=== PATIENT | female | born 1995 | race Caucasian/White ===

== ENCOUNTER 2017-09-03 19:28 | Emergency (ER) | payer SELFPAY ==
[~2017-09-03] VITALS: Ht 162.6 cm; Wt 52.6 kg
[~2017-09-03 19:28] MED LIST: CEPH-507 PO; CLIN150C17 PO; HYDR-757 PO; SULF1TAB35 PO
[2017-09-03 19:43] LABS: BILIRUBIN,URINE NEGATIVE (NEGATIVE); CLARITY,URINE SLIGHTLY CLOUDY; COLOR,URINE YELLOW; GLUCOSE, URINE (UA) NEGATIVE (NEGATIVE); KETONES,URINE NEGATIVE (NEGATIVE); LEUKOCYTE ESTERASE ,URINE 3+ (NEGATIVE); NITRITE,URINE NEGATIVE (NEGATIVE); PH,URINE 7 (5-9); PROTEIN,URINE 1+ (NEGATIVE); UROBILINOGEN,URINE NORMAL (NORMAL)
[2017-09-03] MEDS ORDERED: PREN-8 PO (19:43)
[2017-09-03 19:52] LABS: BACTERIA,URINE LARGE /HPF; SQUAMOUS EPITHELIAL CELL,UR >50 /HPF; WBC,URINE TNTC /HPF
[2017-09-03 20:07] LABS: BASOPHILS # (AUTO) 0.1 10^3/uL (0.0-0.1); BASOPHILS % (AUTO) 0 % (0-10); EOSINOPHILS # (AUTO) 0.8 10^3/uL (0.0-0.3); EOSINOPHILS % (AUTO) 6 % (0-10); HEMATOCRIT 38 % (35-52); HEMOGLOBIN 13.1 G/DL (11.5-16.0); LYMPHOCYTES # (AUTO) 2.3 X 10^3 (1.0-4.0); LYMPHOCYTES % (AUTO) 17 % (12-44); MEAN CORPUSCULAR HEMOGLOBIN 30 PG (25-34); MEAN CORPUSCULAR HGB CONC 35 G/DL (32-36); MEAN CORPUSCULAR VOLUME 85 FL (80-99); MEAN PLATELET VOLUME 12.2 FL (7.4-10.4); MONOCYTES # (AUTO) 0.6 X 10^3 (0.0-1.0); MONOCYTES % (AUTO) 5 % (0-12); NEUTROPHILS # (AUTO) 9.7 X 10^3 (1.8-7.8); NEUTROPHILS % (AUTO) 72 % (42-75); PLATELET COUNT 216 10^3/uL (130-400); RED BLOOD COUNT 4.42 10^6/uL (4.35-5.85); RED CELL DISTRIBUTION WIDTH 13.6 % (10.0-14.5); WHITE BLOOD COUNT 13.4 10^3/uL (4.3-11.0)
[2017-09-03] MEDS ORDERED: AZITHROMYCIN 250 MG TAB (ZITHROMAX) PO ONE (21:00)
[2017-09-03] MEDS ORDERED: LIDOCAINE 1% INJ 20 ML (XYLOCAINE) VIAL INJ ONE (21:00)
[2017-09-03] MEDS ORDERED: cefTRIAXone 1 GM (ROCEPHIN) VIAL IM ONE (21:00)
[2017-09-03] MEDS ORDERED: CEPH-507 PO (21:00)
--- NOTE | 2017-09-03 21:00 | ED GU-Female ---
General Chief Complaint: -Female Stated Complaint: ABD PAIN;SPOTTING; 7WKS Nursing Triage Note: pt reports abd cramping starting this morning. spotting starting last night. also c/o yellow vaginal discharge. Nursing Sepsis Screen: No Definite Risk Source: patient Exam Limitations: no limitations History of Present Illness Time seen by provider: 19:37 Initial Comments This 21-year-old young lady presents to the emergency room with cramping and spotting. She is a at about 7 weeks gestational age. Her last menstrual period was July 12. Her spotting occurred last night and has since resolved. Cramping developed today and seems to be more in the upper abdominal locations. She reports having a "bad" vaginal discharge. She also reports having swelling and dysuria after intercourse. She has never had a confirmed a vaginal infection but she is suspicious of possible infection. She reports 5-6 partners within the last 2 years. She has an appointment scheduled with Dr. ZAZUETA for obstetrical care but has not yet been seen. Patient is established with the [facility] and has an ultrasound scheduled for September 09. Allergies and Home Medications Allergies Coded Allergies: No Known Drug Allergies (Unverified , 01/07/11) Home Medications Cephalexin 500 Mg Capsule, 500 MG PO QID, #28 Prescribed by: ERIC DHILLON on 09/03/17 2100 Vit W-Ca,Fe,FA(<1 mg) 1 Each Tablet, 1 EACH PO DAILY, (Reported) Constitutional: no symptoms reported EENTM: no symptoms reported Respiratory: no symptoms reported Cardiovascular: no symptoms reported Gastrointestinal: see HPI Genitourinary: see HPI : Yes Expected Date of Delivery: Apr 18, 2018 LMP: Jul 12, 2017 Musculoskeletal: no symptoms reported Skin: no symptoms reported Psychiatric/Neurological: No Symptoms Reported Endocrine: No Symptoms Reported Hematologic/Lymphatic: No Symptoms Reported Past Zeatcqn-Nsxyas-Qctyuw Hx Patient Social History Alcohol Use: Denies Use Recreational Drug Use: Yes (marijuana in the past) Smoking Status: Current Everyday Smoker Type Used: Cigarettes Recent Foreign Travel: No Contact w/Someone Who Travel: No Recent Infectious Disease Expo: No Recent Hopitalizations: No Physical Abuse: No Sexual Abuse: No Mistreated: No Fear: No Seasonal Allergies Seasonal Allergies: No Surgeries History of Surgeries: Yes (DENTAL) Respiratory History of Respiratory Disorde: No Cardiovascular History of Cardiac Disorders: No Neurological History of Neurological Disord: No Reproductive System : Yes Expected Date of Delivery: Apr 18, 2018 Last Menstrual Period: Jul 12, 2017 Hx : 1 Hx Para: 0 Hx Reproductive Disorders: No Gastrointestinal History of Gastrointestinal Di: No Musculoskeletal History of Musculoskeletal Dis: No Endocrine History of Endocrine Disorders: No Cancer History of Cancer: No Psychosocial History of Psychiatric Problem: No Suicide Risk Score: 0 Family Medical History Significant Family History: No Pertinent Family Hx Physical Exam Vital Signs Vital Sign - Last 12Hours 09/03/17 09/03/17 19:40 21:36 Temp 98.2 Pulse 104 Resp 18 B/P (MAP) 133/81 (98) Pulse Ox 99 O2 Delivery Room Air Capillary Refill : Less Than 3 Seconds General Appearance: WD/WN, no apparent distress HEENT: PERRL/EOMI, normal ENT inspection Neck: normal inspection Cardiovascular: regular rate, rhythm, no edema, no murmur Respiratory: lungs clear, normal breath sounds, no respiratory distress, no accessory muscle use Gastrointestinal: normal bowel sounds, soft, other (minimal tenderness in the upper abdomen) Pelvic: normal external exam, normal adnexa, no cerv. motion tender, discharge (copious thick green vaginal discharge), No vaginal bleeding Extremities: normal inspection, no pedal edema Neurologic/Psychiatric: sagger preparer II-XII nml as tested, no motor/sensory deficits, alert, normal mood/affect, oriented x 3 Skin: normal color, warm/dry Progress/Results/Core Measures Suspected Sepsis Recent Fever Within 48 Hours: No Infection Criteria Present: None New/Unexplained Altered Menta: No Sepsis Screen: No Definite Risk Sepsis Diagnosis: SIRS Temperature:98.2 Pulse: 104 Respiratory Rate: 18 Laboratory Tests 09/03/17 19:58: White Blood Count 13.4H Blood Pressure 133 /81 Mean: 98 Laboratory Tests 09/03/17 19:58: Platelet Count 216 Results/Orders Lab Results Laboratory Tests Test 09/03/17 19:34 09/03/17 19:58 09/03/17 20:09 Range/Units Urine Color YELLOW Urine Clarity SLIGHTLY CLOUDY Urine pH 7 5-9 Urine Specific [place] 1.010 L 1.016-1.022 Urine Protein 1+ H NEGATIVE Urine Glucose (UA) NEGATIVE NEGATIVE Urine Ketones NEGATIVE NEGATIVE Urine Nitrite NEGATIVE NEGATIVE Urine Bilirubin NEGATIVE NEGATIVE Urine Urobilinogen NORMAL NORMAL MG/DL Urine Leukocyte Esterase 3+ H NEGATIVE Urine RBC (Auto) 2+ H NEGATIVE Urine RBC 2-5 H /HPF Urine WBC TNTC H /HPF Urine Squamous Epithelial Cells >50 H /HPF Urine Crystals NONE /LPF Urine Bacteria LARGE H /HPF Urine Casts NONE /LPF Urine Mucus SMALL H /LPF Urine Culture Indicated YES White Blood Count 13.4 H 4.3-11.0 10^3/uL Red Blood Count 4.42 4.35-5.85 10^6/uL Hemoglobin 13.1 11.5-16.0 G/DL Hematocrit 38 35-52 % Mean Corpuscular Volume 85 80-99 FL Mean Corpuscular Hemoglobin 30 25-34 PG Mean Corpuscular Hemoglobin Concent 35 32-36 G/DL Red Cell Distribution Width 13.6 10.0-14.5 % Platelet Count 216 130-400 10^3/uL Mean Platelet Volume 12.2 H 7.4-10.4 FL Neutrophils (%) (Auto) 72 42-75 % Lymphocytes (%) (Auto) 17 12-44 % Monocytes (%) (Auto) 5 0-12 % Eosinophils (%) (Auto) 6 0-10 % Basophils (%) (Auto) 0 0-10 % Neutrophils # (Auto) 9.7 H 1.8-7.8 X 10^3 Lymphocytes # (Auto) 2.3 1.0-4.0 X 10^3 Monocytes # (Auto) 0.6 0.0-1.0 X 10^3 Eosinophils # (Auto) 0.8 H 0.0-0.3 10^3/uL Basophils # (Auto) 0.1 0.0-0.1 10^3/uL Human Chorionic Gonadotropin, Quant 600856 H <5 MIU/ML My Orders Orders - ERIC MARTE MD Cbc With Automated Diff (09/03/17:37) Hcg,Quantitative (09/03/17:37) Ua Culture If Indicated (09/03/17:37) Abo Rh Type (09/03/17:37) Wet Prep (09/03/17 19:52) Neisseria Gonorrhea Dna (09/03/17 19:52) Chlamydia Dna (09/03/17 19:52) Genital Culture (09/03/17 19:52) Urine Culture (09/03/17 19:34) Ceftriaxone Injection (Rocephin Injectio (09/03/17 21:00) Lidocaine 1% Injection (Xylocaine 1% Inj (09/03/17 21:00) Azithromycin Tablet (Zithromax Tablet) (09/03/17 21:00) Lidocaine 1% (Xylocaine 1%) (09/03/17 21:05) Medications Given in ED Current Medications Medications Dose Ordered Sig/Nam Route Start Time Stop Time Status Last Admin Dose Admin Azithromycin 1,000 mg ONCE ONCE PO 09/03/17 21:00 09/03/17 21:01 DC 09/03/17 21:12 1,000 MG Ceftriaxone Sodium 1,000 mg ONCE ONCE IM 09/03/17 21:00 09/03/17 21:01 DC 09/03/17 21:11 1,000 MG Lidocaine HCl 50 ml STK-MED ONCE .ROUTE 09/03/17 21:05 09/03/17 21:08 DC 09/03/17 21:12 2.1 ML Vital Signs/I&O Vital Sign - Last 12Hours 09/03/17 09/03/17 19:40 21:36 Temp 98.2 Pulse 104 99 Resp 18 16 B/P (MAP) 133/81 (98) Pulse Ox 99 O2 Delivery Room Air Capillary Refill : Less Than 3 Seconds Blood Pressure Mean: 98 Progress Note : Progress Note Patient was found to have urinary tract infection by urinalysis. Vaginal exam also suggested vaginal infection. These infections are likely source of bleeding. Since bleeding resolved and patient has no pelvic pain, ultrasound was deferred. She was empirically treated with Rocephin and azithromycin. The preliminary vaginal smear showed no clue cells, Trichomonas, or yeast. She did have notable white blood cells. A prescription for Keflex was provided for further treatment of UTI. Patient has an ultrasound scheduled with the [facility] on September 09. She has an OB appointment later in the month with Dr. ZAZUETA. Departure Impression Impression: Primary Impression: Abdominal cramping affecting Additional Impressions: Urinary tract infection Qualified Codes: N39.0 - Urinary tract infection, site not specified; R31.9 - Hematuria, unspecified Vaginal discharge Disposition: HOME, SELF-CARE Condition: Improved Departure-Patient Inst. Decision time for Depature: 20:58 Referrals: NO,LOCAL PHYSICIAN (PCP) Primary Care Physician Patient Instructions: Urinary Tract Infection, Adult (DC) Add. Discharge Instructions: Drink plenty of clear liquids. Complete your antibiotic as prescribed. Follow- up with Dr. ZAZUETA as soon as possible, preferably late next week. You need to review the final culture results with Dr. ZAZUETA in about a week. You may proceed with your ultrasound at the [facility]. Return to the emergency room if you have worsening problems including worsening bleeding or worsening pain or fever develop new symptoms such as fever. Nothing in the vagina including intercourse until cleared by Dr. ZAZUETA. All discharge instructions reviewed with patient and/or family. Voiced understanding. Scripts Cephalexin (Keflex) 500 Mg Capsule 500 MG PO QID, #28 CAP Prov: ERIC MARTE MD 09/03/17 Copy Copies To 1: QUYEN ZAZUETA JOSHUA T MD Sep 03, 2017 21:00
[2017-09-03] MEDS ORDERED: LIDOCAINE 1% INJ 50 ML (XYLOCAINE) VIAL ONE (21:05)
[2017-09-03 21:36] VITALS: BP 126/75
== END 2017-09-03 21:36 | disposition home or self-care (01) ==
LOC: EDUNIT# 19:28 → ER 19:30
DX: O23.41 Unspecified infection of urinary tract in pregnancy, first trimester (principal); O99.331 Smoking (tobacco) complicating pregnancy, first trimester; F17.210 Nicotine dependence, cigarettes, uncomplicated; Z3A.01 Less than 8 weeks gestation of pregnancy
CPT/HCPCS: 36415; 81000; 84702; 85025; 86900; 86901; 87070; 87088; 87210; 87491; 87591; 96372; 99284

== ENCOUNTER → 2017-12-01 | Outpatient (CLI) | payer MEDICAID ==
[~2017-12-01] MED LIST changes: +PREN-8 PO
--- NOTE | 2017-12-01 12:03 | Diagnostic Imaging Report ---
INDICATION: Field survey. TECHNIQUE: Multiple real-time grayscale images were obtained over the gravid uterus. COMPARISON: None FINDINGS: There is a single live fetus in a transverse presentation, head to the maternal right. The placenta is anterior. The amniotic fluid volume is normal. heart rate was recorded at 155 beats per minute. survey is unremarkable. kidneys, bladder and stomach are unremarkable. spine is unremarkable. There is a four-chamber heart. There is a three-vessel cord with normal cord insertion. brain is unremarkable. Biometrical measurements are as follows: Biparietal 4.65 cm, age 20 weeks 1 days. Head circumference 17.83 cm, age 20 weeks 3 days. Abdominal circumference 14.40 cm, age 19 weeks 6 days. Femur length 3.19 cm, age 20 weeks 0 days. Sonographic estimate age: 20 weeks 1 days. Sonographic estimated date of delivery: 04-19-18. Estimated Weight: 318 gm (+/- 47 gm). LMP percentile: 24%. heart rate: 155 beats per minute. number: 1 of 1. IMPRESSION: Single live IUP approximately 20 weeks 1 day gestational age. The estimated date of confinement sonographically is 04/19/2018. Dictated by: Dictated on workstation # [id number]
== END ==
LOC: RAD 10:15
PROVIDERS: ATTEND Obstetrics & Gynecology
DX: Z36.89 Encounter for other specified antenatal screening (principal); Z3A.20 20 weeks gestation of pregnancy
CPT/HCPCS: 76805

== ENCOUNTER 2018-04-28 20:09 | Inpatient (IN) | payer MEDICAID ==
[~2018-04-28] VITALS: Ht 162.6 cm; Wt 81.2 kg
[2018-04-28] VITALS (7 sets, daily range): BP systolic 112–134; BP diastolic 55–79
[~2018-04-28 20:09] MED LIST changes: +HYDR-4226 PO; -HYDR-757 PO
[2018-04-28] MEDS ORDERED: MISOPROSTOL 100 MCG (CYTOTEC) TAB ONE (20:36)
[2018-04-28] MEDS ORDERED: D5 LR IV SOLUTION 1,000 ML IV ONE ×2 (20:36→20:38)
[2018-04-28] MEDS: D5 LR IV SOLUTION 1,000 ML IV SCH (20:40)
[2018-04-28] MEDS ORDERED: LACTATED RINGERS 1,000 ML IV ONE (20:45)
[2018-04-28] MEDS: LACTATED RINGERS 1,000 ML IV SCH (20:45)
[2018-04-28 20:54] LABS: BASOPHILS % (AUTO) 0 % (0-10); EOSINOPHILS # (AUTO) 0.5 10^3/uL (0.0-0.3); EOSINOPHILS % (AUTO) 4 % (0-10); HEMATOCRIT 35 % (35-52); HEMOGLOBIN 11.9 G/DL (11.5-16.0); LYMPHOCYTES # (AUTO) 1.4 X 10^3 (1.0-4.0); LYMPHOCYTES % (AUTO) 10 % (12-44); MEAN CORPUSCULAR HEMOGLOBIN 30 PG (25-34); MEAN CORPUSCULAR HGB CONC 34 G/DL (32-36); MEAN CORPUSCULAR VOLUME 87 FL (80-99); MEAN PLATELET VOLUME 12.2 FL (7.4-10.4); MONOCYTES # (AUTO) 0.6 X 10^3 (0.0-1.0); MONOCYTES % (AUTO) 4 % (0-12); NEUTROPHILS # (AUTO) 12.1 X 10^3 (1.8-7.8); NEUTROPHILS % (AUTO) 83 % (42-75); PLATELET COUNT 233 10^3/uL (130-400); RED BLOOD COUNT 4.01 10^6/uL (4.35-5.85); RED CELL DISTRIBUTION WIDTH 14.8 % (10.0-14.5); WHITE BLOOD COUNT 14.7 10^3/uL (4.3-11.0)
[2018-04-28] MEDS ORDERED: ceFAZolin INJECTION 1,000 MG in NS (IVPB) 50 ML IV ONE (21:00)
[2018-04-28] MEDS ORDERED: TERBUTALINE INJ 1 MG/ML (BRETHINE) AMP SC PRN (21:00)
[2018-04-28] MEDS ORDERED: MISOPROSTOL 100 MCG (CYTOTEC) TAB PO ONE (21:00)
[2018-04-28 21:14] LABS: AMORPHOUS SEDIMENT,UR FEW AMOR URATES /LPF; BACTERIA,URINE FEW /HPF; BILIRUBIN,URINE NEGATIVE (NEGATIVE); CLARITY,URINE SLIGHTLY CLOUDY; COLOR,URINE YELLOW; GLUCOSE, URINE (UA) NEGATIVE (NEGATIVE); KETONES,URINE NEGATIVE (NEGATIVE); LEUKOCYTE ESTERASE ,URINE NEGATIVE (NEGATIVE); NITRITE,URINE NEGATIVE (NEGATIVE); PH,URINE 6.5 (5-9); PROTEIN,URINE 1+ (NEGATIVE); RBC,URINE >100 /HPF; UROBILINOGEN,URINE NORMAL (NORMAL)
[2018-04-28 21:19] LABS: BAND NEUTROPHILS 18 %; BASOPHILS % (MANUAL) 0 %; EOSINOPHILS % (MANUAL) 1 %; LYMPHOCYTES % (MANUAL) 13 %; MONOCYTES % (MANUAL) 3 %; NEUTROPHILS % (MANUAL) 65 %; RBC MORPH NORMAL
[2018-04-28 21:20] LABS: AMPHETAMINE SCREEN, URINE NEGATIVE (NEGATIVE); BARBITURATE SCREEN URINE NEGATIVE (NEGATIVE); BENZODIAZEPINES SCREEN URINE NEGATIVE (NEGATIVE); CANNABINOID SCREEN, URINE NEGATIVE (NEGATIVE); COCAINE SCREEN URINE NEGATIVE (NEGATIVE); METHADONE STAT NEGATIVE (NEGATIVE); METHAMPHETAMINE SCREEN URINE S NEGATIVE (NEGATIVE); OPIATE SCREEN URINE NEGATIVE (NEGATIVE); OXYCODONE STAT NEGATIVE (NEGATIVE); PROPOXYPHENE STAT NEGATIVE (NEGATIVE); TRICYCLIC ANTIDEPRESSANTS SCRE NEGATIVE (NEGATIVE)
[2018-04-28] MEDS: CATHETER FLUSH 10 ML SYR IV SCH (21:57)
[2018-04-29] VITALS (9 sets, daily range): BP systolic 105–121; BP diastolic 55–74
[2018-04-29] MEDS: ACETAMINOPHEN 500 MG TAB (TYLENOL) PO PRN ×2 (01:27→07:41)
[2018-04-29] MEDS: MISOPROSTOL 100 MCG (CYTOTEC) TAB PO SCH ×2 (02:25→06:01)
[2018-04-29] MEDS: D5 LR IV SOLUTION 1,000 ML IV SCH ×2 (02:25→06:01)
[2018-04-29] MEDS: CATHETER FLUSH 10 ML SYR IV SCH (06:01)
--- NOTE | 2018-04-29 08:26 | History & Physical-OB ---
OB - Chief Complaint & HPI Date/Time Date of Admission: Date of Admission: Apr 28, 2018 at 8:09 pm Time Seen by Provider: 08:00 Chief Complaint/History OB-Reason for Admission/Chief: Induction of Labor Hx : 1 Hx Para: 0 Expected Date of Delivery: Apr 18, 2018 Gestational Age in Weeks: 41 Gestational Age in Days: 4 Other reason for admission: Post dates Admission Nurse Assessment Rev: Yes History of Labs A pos Antibody neg RNI RPR NR HBsAg NR HIV NR GC neg GBS neg Allergies and Home Medications Allergies Coded Allergies: No Known Drug Allergies (Unverified , 01/07/11) Home Medications Vit W-Ca,Fe,FA(<1 mg) 1 Each Tablet, 1 EACH PO DAILY, (Reported) Patient Home Medication List Home Medication List Reviewed: Yes OB - History Hx of Present Care: Yes Ultrasounds: Normal mid trimester US Obstetrical Complications: None Medical Complications: None Patient Past Medical History n/a Social History/Family History Recent Infectious Disease Expo: No Alcohol Use: Denies Use Recreational Drug Use: No (Pt. denies, use documented in record as "before " UDS neg) OB - Admission Exam Physical Exam Vitals: Vital Signs 04/29/18 07:30 Temp 97.1 Pulse 75 Resp 18 B/P (MAP) 121/71 (88) Pulse Ox 99 O2 Delivery Room Air HEENT: NCAT Heart: Rhythm Normal Lungs: Clear Abdomen: Gravid Extremities: Normal Reflexes: Normal Cervical Dilatation: Fingertip Effacement: 75% Station: -2 Membranes: Intact Heart Rate: 130's Accelerations: Accelerations Present Decelerations: Variable Decelerations Short Term Variability: Present Fdc Variability: Average (6-25) Contractions on Admission: 6-10 Minutes Apart Intensity: Mild Pope Scoring Tool (Modified) Dilation (cm): 1-2cm (1) Effacement (%): 51-79% (2) Descent/Station: -2 (1) Cervix Consistency: Soft (2) Cervix Position: Anterior (2) Pope Score: 7 Labs Laboratory Tests Test 04/28/18 20:20 04/28/18 20:25 Range/Units Urine Color YELLOW Urine Clarity SLIGHTLY CLOUDY Urine pH 6.5 5-9 Urine Specific [place] 1.020 1.016-1.022 Urine Protein 1+ H NEGATIVE Urine Glucose (UA) NEGATIVE NEGATIVE Urine Ketones NEGATIVE NEGATIVE Urine Nitrite NEGATIVE NEGATIVE Urine Bilirubin NEGATIVE NEGATIVE Urine Urobilinogen NORMAL NORMAL MG/DL Urine Leukocyte Esterase NEGATIVE NEGATIVE Urine RBC (Auto) 4+ H NEGATIVE Urine RBC >100 H /HPF Urine WBC NONE /HPF Urine Crystals PRESENT H /LPF Urine Amorphous Sediment FEW NARESH URATES H /LPF Urine Bacteria FEW H /HPF Urine Casts NONE /LPF Urine Mucus NEGATIVE /LPF Urine Culture Indicated NO Urine Opiates Screen NEGATIVE NEGATIVE Urine Oxycodone Screen NEGATIVE NEGATIVE Urine Methadone Screen NEGATIVE NEGATIVE Urine Propoxyphene Screen NEGATIVE NEGATIVE Urine Barbiturates Screen NEGATIVE NEGATIVE Ur Tricyclic Antidepressants Screen NEGATIVE NEGATIVE Urine Phencyclidine Screen NEGATIVE NEGATIVE Urine Amphetamines Screen NEGATIVE NEGATIVE Urine Methamphetamines Screen NEGATIVE NEGATIVE Urine Benzodiazepines Screen NEGATIVE NEGATIVE Urine Cocaine Screen NEGATIVE NEGATIVE Urine Cannabinoids Screen NEGATIVE NEGATIVE White Blood Count 14.7 H 4.3-11.0 10^3/uL Red Blood Count 4.01 L 4.35-5.85 10^6/uL Hemoglobin 11.9 11.5-16.0 G/DL Hematocrit 35 35-52 % Mean Corpuscular Volume 87 80-99 FL Mean Corpuscular Hemoglobin 30 25-34 PG Mean Corpuscular Hemoglobin Concent 34 32-36 G/DL Red Cell Distribution Width 14.8 H 10.0-14.5 % Platelet Count 233 130-400 10^3/uL Mean Platelet Volume 12.2 H 7.4-10.4 FL Neutrophils (%) (Auto) 83 H 42-75 % Lymphocytes (%) (Auto) 10 L 12-44 % Monocytes (%) (Auto) 4 0-12 % Eosinophils (%) (Auto) 4 0-10 % Basophils (%) (Auto) 0 0-10 % Neutrophils # (Auto) 12.1 H 1.8-7.8 X 10^3 Lymphocytes # (Auto) 1.4 1.0-4.0 X 10^3 Monocytes # (Auto) 0.6 0.0-1.0 X 10^3 Eosinophils # (Auto) 0.5 H 0.0-0.3 10^3/uL Basophils # (Auto) 0.0 0.0-0.1 10^3/uL Neutrophils % (Manual) 65 % Lymphocytes % (Manual) 13 % Monocytes % (Manual) 3 % Eosinophils % (Manual) 1 % Basophils % (Manual) 0 % Band Neutrophils 18 % Blood Morphology Comment NORMAL OB - Assessment/Plan/Diagnosis Assessment Assessment: induction of labor Admission Dx 22 yo @ 41.3 weeks Induction of labor Post dates GBS neg RNI Admission Status: Inpatient Order (span 2 midnights) Reason for Inpatient Admission: 22 yo @ 41.3 weeks Induction of labor Post dates GBS neg RNI Plan Plan: Induction Induction Method: per Misoprostol Protocol QUYEN ZAZUETA DO Apr 29, 2018 8:26 am
[2018-04-29] MEDS ORDERED: ceFAZolin 2 GM IV Premixed 50 ML ONE (09:05)
[2018-04-29] MEDS ORDERED: raNItidine 50 MG/2 ML INJ (ZANTAC) ONE (09:06)
[2018-04-29] MEDS ORDERED: METOCLOPRAMIDE INJ 10 MG/2 ML (REGLAN) ONE (09:06)
[2018-04-29] MEDS ORDERED: CITRIC ACID/SOB CIT (BICITRA) 30 ML UDC ONE (09:07)
[2018-04-29] MEDS ORDERED: fentaNYL INJECTION 100 MCG/2 ML AMP ONE (09:09)
[2018-04-29] MEDS ORDERED: ceFAZolin 2 GM IV Premixed 50 ML IV NR (09:15)
[2018-04-29] MEDS ORDERED: BUPIVACAINE SPINAL 0.75% (SENSORCAINE) 2 ML AMP ONE (09:19)
[2018-04-29] MEDS ORDERED: OXYTOCIN/NORMAL SALINE 500 ML IV ONE (09:26)
[2018-04-29] MEDS ORDERED: ONDANSETRON 4 MG/2 ML (SDV) Z0FRAN ONE (09:26)
[2018-04-29] MEDS ORDERED: DEXAMETHASONE 10 MG/ML (DECADRON) 1 ML VIAL ONE (09:26)
--- NOTE | 2018-04-29 09:36 | Progress Note-Standard ---
Standard Progress Note Progress Notes/Assess & Plan Date Seen by Provider: Apr 29, 2018 Time Seen by Provider: 08:45 Progress/Assessment & Plan Patient was brought into hospital for induction secondary to post dates at 41.3 weeks last night. MIsoprostol was given PO as induction agent, however, we were only able to give one dose due to heart tracing. There were several episodes of variable decels some of which dropped into the 60s. This morning I discussed with the patient her exam and how it remained unfavorable at fingertip , 60/-2, and how labor and induction at this point would involve pitocin and likely be a long process. There was already evidence of intolerance to labor. We discussed proceeding with pitocin augmentation, vs electing to proceed with . Risk of the procedure was discussed in detail with RN present. All questions were answered, after discussing with her significant other she decided to proceed with as offered. Will proceed with primary at OR availability. QUYEN ZAZUETA DO Apr 29, 2018 9:36 am
[2018-04-29] MEDS ORDERED: OXYTOCIN/NORMAL SALINE 500 ML IV SCH (09:37)
[2018-04-29] MEDS ORDERED: ACHD5005 PO (09:42)
[2018-04-29] MEDS ORDERED: DOCU100C37 PO (09:42)
[2018-04-29] MEDS ORDERED: IBUP-844 PO (09:42)
--- NOTE | 2018-04-29 09:44 | Discharge Inst-Women's Service ---
Discharge Inst-Women's Serv Depart Medication/Instructions New, Converted or Re-Newed RX: RX on Chart Consults/Follow Up Additional Follow Up: Yes Orders/Referrals Dr. Cintron in 7-10 days and in 6 weeks Activity Activity: Activity as Tolerated Driving Instructions: No Driving for 1 Week NO SMOKING: NO SMOKING Nothing Inside Vagina: No Douching, No Cle[place], No Tampons Diet Discharge Diet: No Restrictions Symptoms to Report to : Bleeding Excessive, Pain Increased, Fever Over 101 Degrees F, Vaginal Bleeding Increase, Questions/Concerns For Any Problems or Questions: Contact Your Physician Skin/Wound Care Infection Signs and Symptoms: Increased Redness, Foul Odor of Wound, Increased Drainage, Skin Itchy or Has a Rash, Increased Swelling, Temperature Above 101 F Operative Area Clean and Dry: Keep Incision Clean/Dry Stitches/Conrad/Dermabond: Dermabond, Care of Stitches Bathing Instructions: QUYEN Hernández DO Apr 29, 2018 9:44 am
[2018-04-29] MEDS ORDERED: TETANUS,DIPTH,PERTUSS P/F (BOOSTRIX) 0.5 ML VIAL IM SCH (09:45)
[2018-04-29] MEDS: LACTATED RINGERS 1,000 ML IV SCH (09:45)
[2018-04-29] MEDS ORDERED: MEASLES,MUMPS,RUBELLA 1 EA INJ SC SCH (09:45)
[2018-04-29] MEDS ORDERED: HYDROmorphone 2 MG/ML VIAL (DILAUDID) IV PRN (09:45)
[2018-04-29] MEDS ORDERED: KETOROLAC 30 MG/ML VIAL IVP SCH (09:45)
[2018-04-29] MEDS ORDERED: ONDANSETRON 4 MG/2 ML (SDV) Z0FRAN IVP PRN (09:45)
[2018-04-29] MEDS ORDERED: LIDOCAINE PF 2% 5 ML (XYLOCAINE) VIAL ONE (09:59)
[2018-04-29] MEDS ORDERED: LACTATED RINGERS 1,000 ML IV SCH ×2 (10:25)
[2018-04-29] MEDS ORDERED: KETOROLAC 30 MG/ML VIAL ONE (10:29)
[2018-04-29] MEDS ORDERED: METOCLOPRAMIDE INJ 10 MG/2 ML (REGLAN) IV ONE (10:30)
[2018-04-29] MEDS ORDERED: diphenhydrAMINE 50 MG/ML INJ (BENADRYL) IV PRN (10:30)
[2018-04-29] MEDS ORDERED: NALOXONE 0.4 MG/ML 1 ML (NARCAN) VIAL IV PRN ×2 (10:30)
[2018-04-29] MEDS ORDERED: CITRIC ACID/SOB CIT (BICITRA) 30 ML UDC PO ONE (10:30)
[2018-04-29] MEDS ORDERED: FAMOTIDINE 20MG/2ML IV (PEPCID) IV ONE (10:30)
[2018-04-29] MEDS ORDERED: ONDANSETRON 4 MG/2 ML (SDV) Z0FRAN IV PRN (10:30)
[2018-04-29] MEDS ORDERED: METOCLOPRAMIDE INJ 10 MG/2 ML (REGLAN) IV PRN (10:30)
[2018-04-29] MEDS ORDERED: raNItidine 50 MG/2 ML INJ (ZANTAC) IV ONE (11:00)
[2018-04-29] MEDS ORDERED: AZITHROMYCIN INJECTION 500 MG in NS (IVPB) 250 ML IV NR (13:00)
[2018-04-29] MEDS ORDERED: RT-ALBUTEROL SULF 2.5 MG/3 ML PRE-MIX VIAL INH PRN (13:00)
[2018-04-29] MEDS: guaiFENesin (MUCINEX) 600 MG TAB PO SCH ×2 (13:36→22:05)
[2018-04-29] MEDS ORDERED: CATHETER FLUSH 10 ML SYR IV SCH (14:00)
[2018-04-29] MEDS: HYDROcodone/APAP 5 MG/325 MG (LORTAB) TAB PO PRN ×2 (15:12→22:05)
--- NOTE | 2018-04-29 16:43 | OPERATIVE REPORT ---
DATE OF SERVICE: PREOPERATIVE DIAGNOSES: 1. A 22-year-old G1, P0 at 41 weeks and 4 days gestation. 2. intolerance of labor. POSTOPERATIVE DIAGNOSES: 1. A 22-year-old G1, P0 at 41 weeks and 4 days gestation. 2. intolerance of labor. 3. Nuchal cord x2 and meconium stained fluid. PROCEDURE: Primary low transverse section. SURGEON: Drew Cintron DO RETROFIT INSTALLER: Byron Bull MS-3. ANESTHESIA: Spinal. ESTIMATED BLOOD LOSS: 500 mL. URINE OUTPUT: 350 mL clear at the end of the procedure. FLUIDS: 1300 mL of lactated Ringer solution. FINDINGS: A live female infant, weighing 7 pounds 1 ounce, Apgars of 7 and 9. Grossly normal appearing uterus, bilateral fallopian tubes and ovaries. Meconium stained fluid and nuchal cord x2. SPECIMEN SENT: Placenta. INDICATIONS FOR PROCEDURE: This 22-year-old female was brought in last night for induction of labor secondary to postdates at 41 weeks. Risks of induction were discussed with the patient in detail. We proceeded with using misoprostol as a cervical ripening agent. However, after only one dose orally, the patient had episodes of intolerance. A second dose was not given. IV fluid hydration was administered and oxygen was started. She was allowed to continue to contract throughout the night. There were intermittent variables, some of them were down into the 60s throughout the evening, however, she remained stable until morning. This morning, I evaluated the patient and checked her cervix, which I had found to make little to no change. She was still fingertip dilated and had a long labor ahead of her. Due to the consideration of the intolerance of the mild contraction pattern, I discussed with her proceeding with as I had suspected there was probably meconium stained fluid and possibly even a nuchal cord due to the way that the fetus was not tolerating any type of contraction pattern or labor. Risk of was discussed with the patient in detail including risk of bleeding, infection, damage to surrounding structures including but not limited to bowel, bladder, ureter, kidneys; pre and postoperative expectations; postoperative recovery timeframe as well as possible need for reoperation; risk from anesthesia and even . After everything was discussed with the patient, consent was obtained. The patient was taken to the operating room. OPERATIVE REPORT IN DETAIL: Once in the operating room, spinal analgesia was found to be adequate. She was placed in a supine position with a leftward tilt, prepped and draped in normal sterile fashion. A Pfannenstiel skin incision was made with a knife and carried down to the underlying fascia using Bovie cautery. The fascial incision extended laterally using Bovie cautery. Superior edge of the fascial incision was then grasped with Sally clamps, tented up and dissected off the underlying rectus muscles. The inferior aspect of the fascial incision was then grasped with Sally clamps, tented up and dissected off the underlying rectus muscles. The rectus muscle was then dissected down the midline using Anglin scissors which exposed the peritoneum, which I entered bluntly and extended using blunt traction. I then placed an Gio ring retractor into the peritoneal incision, which offered excellent lateral sidewall retraction. I then identified the lower uterine segment, which was found to be thinned out. I made an incision through the vesicouterine peritoneum and bluntly dissected the vesicouterine peritoneum off the lower uterine segment. I then proceeded with my myotomy until membranes were visualized at which point I extended the uterine incision laterally and superiorly using bandage scissors. At rupture of membranes using the Allis clamp, there was meconium stained fluid noted. The infant was found in vertex presentation. With gentle fundal pressure, the infant's head was elevated up to the incision and delivered through the incision where the nares and oropharynx were bulb suctioned. There was a double nuchal cord reduced. Anterior and posterior shoulders were delivered. was then brought into the operative field where cord was doubly clamped and cut. was handed off to the waiting nurses in attendance. Cord blood was collected. Three-vessel cord with intact placenta was delivered spontaneously thereafter. IV Pitocin was initiated to facilitate uterine contraction. Uterine fundus became firmer by manual massage. The uterus was then exteriorized and cleared of all endometrial clots and debris. I then proceeded with closing the uterine incision using 0 Vicryl suture in running locked fashion. Second layer of imbricating 0 Monocryl was placed. Excellent hemostasis was noted after doing this. I then placed the uterus back within the pelvis and copiously irrigated the pelvis using normal saline. Once again, there was no active bleeding noted from any of my dissection planes. I then placed Interceed antiadhesive over my low transverse incision. I removed all other instruments from the patient's abdomen and proceeded with closing the peritoneum using 3-0 Vicryl suture in a running fashion. The rectus muscle was then reapproximated using 3-0 Vicryl suture in interrupted fashion. The fascia was reapproximated using 0 Vicryl suture in running fashion. Subcutaneous tissue was reapproximated using 3-0 plain in an interrupted subcutaneous stitch and skin reapproximated using 4-0 Monocryl in a running subcuticular. Dermabond was applied to incision and sterile dressing with adhesive white tape. The patient tolerated the procedure well and was taken to recovery area in stable condition. Lap and sponge counts were correct at the end of the procedure. Instrument counts were correct as well. Two grams of Ancef were given preoperatively for infection prophylaxis. Job ID: [id number] DocumentID: [id number] Dictated Date: 04/29/2018 11:03:52 Green Building Design Specialist Date: 04/29/2018 16:42:47 Dictated By: DO WILFRIDO HARRY
[2018-04-29] MEDS ORDERED: IBUPROFEN 600 MG (MOTRIN) TAB PO ONE (21:11)
[2018-04-29] MEDS: IBUPROFEN 600 MG (MOTRIN) TAB PO SCH (21:15)
[2018-04-29] MEDS: DOCUSATE SODIUM 100 MG (COLACE) CAP PO SCH (22:05)
[2018-04-30] VITALS (7 sets, daily range): BP systolic 98–152; BP diastolic 52–78
[2018-04-30 04:50] LABS: BASOPHILS % (AUTO) 0 % (0-10); EOSINOPHILS # (AUTO) 0.1 10^3/uL (0.0-0.3); EOSINOPHILS % (AUTO) 1 % (0-10); HEMATOCRIT 29 % (35-52); HEMOGLOBIN 9.7 G/DL (11.5-16.0); LYMPHOCYTES % (AUTO) 10 % (12-44); MEAN CORPUSCULAR HGB CONC 33 G/DL (32-36); MEAN CORPUSCULAR VOLUME 88 FL (80-99); MEAN PLATELET VOLUME 11.6 FL (7.4-10.4); MONOCYTES # (AUTO) 1.4 X 10^3 (0.0-1.0); MONOCYTES % (AUTO) 7 % (0-12); NEUTROPHILS % (AUTO) 82 % (42-75); PLATELET COUNT 196 10^3/uL (130-400); RED BLOOD COUNT 3.29 10^6/uL (4.35-5.85); RED CELL DISTRIBUTION WIDTH 14.8 % (10.0-14.5); WHITE BLOOD COUNT 19.5 10^3/uL (4.3-11.0)
[2018-04-30 04:52] LABS: MEAN CORPUSCULAR HEMOGLOBIN 29 PG (25-34)
[2018-04-30] MEDS ORDERED: IBUPROFEN 600 MG (MOTRIN) TAB PO ONE (05:38)
[2018-04-30] MEDS: HYDROcodone/APAP 5 MG/325 MG (LORTAB) TAB PO PRN ×3 (05:47→23:28)
[2018-04-30] MEDS: IBUPROFEN 600 MG (MOTRIN) TAB PO SCH ×4 (05:47→23:27)
--- NOTE | 2018-04-30 07:54 | Anesthesia-Regional Post-Op ---
Regional Patient Condition Mental Status: Alert, Oriented x3 Circulation: Same as Pre-Op Headache: Absent Sensation: Full Recovery Motor Block: Absent Post Op Complications Complications None Follow Up Care/Instructions Patient Instructions None needed. Anesthesia/Patient Condition Patient is doing well, no complaints, stable vital signs, no apparent adverse anesthesia problems. No complications reported per nursing. D/C home per [facility] [place] Criteria: Yes OBB TINEO CRNA Apr 30, 2018 07:54
[2018-04-30] MEDS: DOCUSATE SODIUM 100 MG (COLACE) CAP PO SCH ×2 (08:30→23:27)
--- NOTE | 2018-04-30 09:38 | Postpartum Progress Note ---
Note Note Day # 1 Subjective: Patient is without complaints. Ambulating, voiding. Tolerating a regular diet without nausea or vomiting. Normal lochia. Pain is well controlled with oral pain medications. Objective: Vital Sign - Last 24 Hours 04/29/18 04/29/18 04/29/18 04/29/18 12:00 12:45 13:47 14:20 Temp 97.8 97.5 Pulse 60 80 Resp 14 16 B/P (MAP) 110/70 (83) 120/74 (89) Pulse Ox 97 95 96 O2 Delivery Room Air Room Air Room Air Room Air 04/29/18 04/29/18 04/29/18 04/30/18 16:10 16:44 19:15 01:15 Temp 98.0 98.6 98.1 Pulse 81 86 94 Resp 18 18 18 B/P (MAP) 120/62 (81) 105/66 (79) 109/63 (78) Pulse Ox 96 95 97 96 O2 Delivery Room Air Room Air 04/30/18 04/30/18 05:50 08:30 Temp 98.2 97.0 Pulse 92 89 Resp 18 18 B/P (MAP) 126/71 (89) 114/65 (81) Pulse Ox 97 97 O2 Delivery Room Air Intake and Output 04/29/18 04/29/18 04/30/18 15:00 23:00 07:00 Intake Total 800 ml 1240 ml 1100 ml Output Total 350 ml 900 ml 1800 ml Balance 450 ml 340 ml -700 ml Physical Exam: General - Alert and oriented, no apparent distress Abdomen - Soft, appropriately tender to palpation, non-distended, fundus firm at umbilicus Extremities - no edema, negative Ken's bilaterally Incision - c/d/i Assessment: POD 1 PLTCS Acute blood loss anemia Plan: Routine care. Encourage breast feeding. Encourage ambulation. Ferrous sulfate supplementation. Plan for discharge tomorrow Vitals - Labs Vital Signs - I&O Vital Signs Date Time Temp Pulse Resp B/P (MAP) Pulse Ox O2 Delivery O2 Flow Rate FiO2 04/30/18 08:30 97.0 89 18 114/65 (81) 97 Room Air 04/30/18 05:50 98.2 92 18 126/71 (89) 97 04/30/18 01:15 98.1 94 18 109/63 (78) 96 04/29/18 19:15 98.6 86 18 105/66 (79) 97 04/29/18 16:44 95 Room Air 04/29/18 16:10 98.0 81 18 120/62 (81) 96 Room Air 04/29/18 14:20 97.5 80 16 120/74 (89) 96 Room Air 04/29/18 13:47 95 Room Air 04/29/18 12:45 97.8 60 14 110/70 (83) 97 Room Air 04/29/18 12:00 Room Air I & O 04/30/18 07:00 Intake Total 3140 ml Output Total 3050 ml Balance 90 ml Labs Laboratory Tests 04/30/18 04:40: White Blood Count 19.5H, Red Blood Count 3.29L, Hemoglobin 9.7L, Hematocrit 29L , Mean Corpuscular Volume 88, Mean Corpuscular Hemoglobin 29, Mean Corpuscular Hemoglobin Concent 33, Red Cell Distribution Width 14.8H, Platelet Count 196, Mean Platelet Volume 11.6H, Neutrophils (%) (Auto) 82H, Lymphocytes (%) (Auto) 10L, Monocytes (%) (Auto) 7, Eosinophils (%) (Auto) 1, Basophils (%) (Auto) 0, Neutrophils # (Auto) 16.0H, Lymphocytes # (Auto) 2.0, Monocytes # (Auto) 1.4H, Eosinophils # (Auto) 0.1, Basophils # (Auto) 0.0 QUYEN ZAZUETA DO Apr 30, 2018 9:38 am
[2018-04-30] MEDS: guaiFENesin (MUCINEX) 600 MG TAB PO SCH ×2 (10:18→18:02)
[2018-05-01 05:50] VITALS: BP 100/57
[2018-05-01] MEDS: IBUPROFEN 600 MG (MOTRIN) TAB PO SCH (05:54)
[2018-05-01 08:50] VITALS: BP 116/71
[2018-05-01] MEDS: DOCUSATE SODIUM 100 MG (COLACE) CAP PO SCH (08:53)
[2018-05-01] MEDS: guaiFENesin (MUCINEX) 600 MG TAB PO SCH (08:53)
--- NOTE | 2018-05-01 09:03 | Postpartum Progress Note ---
Note Note Day # 2 Subjective: Patient is without complaints. Ambulating, voiding. Tolerating a regular diet without nausea or vomiting. Normal lochia. Pain is well controlled with oral pain medications. Objective: Vital Sign - Last 24 Hours 04/30/18 04/30/18 04/30/18 04/30/18 13:35 16:30 19:20 19:43 Temp 98.7 97.6 97.7 Pulse 88 88 97 Resp 16 20 18 B/P (MAP) 152/78 (102) 109/72 (84) 107/66 (80) Pulse Ox 98 95 98 96 O2 Delivery Room Air Room Air Room Air 04/30/18 05/01/18 05/01/18 23:30 05:50 08:50 Temp 98.1 98.0 99.5 Pulse 84 75 88 Resp 18 18 18 B/P (MAP) 98/52 (67) 100/57 (71) 116/71 (86) Pulse Ox 98 98 98 Physical Exam: General - Alert and oriented, no apparent distress Abdomen - Soft, appropriately tender to palpation, non-distended, fundus firm at umbilicus Extremities - no edema, negative Ken's bilaterally Incision - c/d/i Assessment: POD 2 PLTCS Acute blood loss anemia Plan: Routine care. Encourage breast feeding. Encourage ambulation. Ferrous sulfate supplementation. Plan for discharge today Vitals - Labs Vital Signs - I&O Vital Signs Date Time Temp Pulse Resp B/P (MAP) Pulse Ox O2 Delivery O2 Flow Rate FiO2 05/01/18 08:50 99.5 88 18 116/71 (86) 98 05/01/18 05:50 98.0 75 18 100/57 (71) 98 04/30/18 23:30 98.1 84 18 98/52 (67) 98 04/30/18 19:43 96 Room Air 04/30/18 19:20 97.7 97 18 107/66 (80) 98 04/30/18 16:30 97.6 88 20 109/72 (84) 95 Room Air 04/30/18 13:35 98.7 88 16 152/78 (102) 98 Room Air QUYEN ZAZUETA DO May 01, 2018 9:02 am
--- NOTE | 2018-05-07 00:28 | DISCHARGE SUMMARY ---
DATE OF SERVICE: ADMISSION DIAGNOSES: 1. A 22-year-old G1, P0 at 41 weeks and 3 days gestation. 2. Induction of labor. 3. Postdates. 4. Rubella nonimmune. 5. Group B strep negative. DISCHARGE DIAGNOSES: 1. A 22-year-old G1, P0 at 41 weeks and 3 days gestation. 2. Induction of labor. 3. Postdates. 4. Rubella nonimmune. 5. Group B strep negative. 6. Postoperative day #2 primary low transverse section. 7. Acute blood loss anemia. ATTENDING PHYSICIAN: Quyen Zazueta D.O. SERVICES: [facility]. HOSPITAL COURSE: Is as follows. Please see admission H and P from 04/29/2018 for complete details pertaining to the patient's admission presentation and plan of care. Please see operative report from 04/29/2018 for complete details pertaining to the patient's operative procedure in detail as well as the indications for procedure. POSTOPERATIVE COURSE: The patient was fairly routine. On postop day 1, she was doing very well, ambulating and voiding freely. Her vital signs remained stable. Her hemoglobin had decreased to 9.7 and she was started on ferrous sulfate supplementation. Her incision remained clean and dry and intact and she was encouraged to ambulate and use incentive spirometry. On day #2, the patient continued to do well and was ambulating and voiding freely, lochia was minimal. Vital signs remained stable. Incision remained clean, dry and intact. Due to the patient's clinical stability, decision was made to discharge the patient on postop day #2. She was sent home on the following medications including Motrin 600 mg 1 p.o. q.6 hours p.r.n. as needed for pain and cramping #60, Barnes 5/325 one to two p.o. q.4 to 6 hours p.r.n. as needed for pain, #50 and Colace 100 mg 1 p.o. b.i.d. p.r.n. as needed for constipation, #40. She was told to continue her vitamin, the ferrous sulfate supplementation was sent home with her as well. Postoperative and precautions were reviewed with the patient in detail and after all her questions were answered to her satisfaction discharge was facilitated at that point without further difficulty. Job ID: [id number] DocumentID: [id number] Dictated Date: 05/06/2018 16:52:12 Psychological Stress Evaluator Date: 05/07/2018 00:27:23 Dictated By: QUYEN ZAZUETA DO
== END 2018-05-01 21:00 | disposition home or self-care (01) | DRG 765 ==
LOC: LDRP 20:09
PROVIDERS: ADMIT Obstetrics & Gynecology; ATTEND Obstetrics & Gynecology
PROC: 3E0DXGC Introduction of Other Therapeutic Substance into Mouth and Pharynx, External Approach (ICD-10-PCS; 2018-04-28)
PROC: 10D00Z1 Extraction of Products of Conception, Low, Open Approach (ICD-10-PCS; principal; 2018-04-29 11:15)
DX: O48.0 Post-term pregnancy (principal); O90.81 Anemia of the puerperium; D62 Acute posthemorrhagic anemia; O76 Abnormality in fetal heart rate and rhythm complicating labor and delivery; O69.81X0 Labor and delivery complicated by cord around neck, without compression, not applicable or unspecified; O77.0 Labor and delivery complicated by meconium in amniotic fluid; Z3A.41 41 weeks gestation of pregnancy; Z37.0 Single live birth; Z23 Encounter for immunization
CPT/HCPCS: 36415; 80306; 81000; 85007; 85025; 85027; 86850; 86900; 86901; 88307; 90707; 94640; 94664; 94760

== ENCOUNTER 2018-07-14 00:57 | Emergency (ER) | payer MEDICAID ==
[~2018-07-14] VITALS: Ht 162.6 cm; Wt 68.0 kg
[~2018-07-14 00:57] MED LIST changes: +ACHD5005 PO; +DOCU100C37 PO; +IBUP-844 PO
--- OUTSIDE RECORDS SUMMARY | 2018-07-14 01:03 | XMS REPORT ---
Author Author STANLEY ARTEAGA Organization [employer] Address Unknown Phone Unavailable Care Team Providers Care Admin Dir Name Role Phone STANLEY ARTEAGA CP Unavailable Allergies, Adverse Reactions, Alerts Substance Reaction Event Type N.K.D.A. Info Not Available Non Drug Allergy Problems Problem Type Condition Code Onset Dates Condition Status Assessment Dental examination Z01.20 Active Medications No Known Medications Procedures Procedure Coding System Code Date BITEWING - SINGLE FILM CPT-4 D0270 Jun 22, 2015 EXTRAC ERUPTED TOOTH/EXPOSED ROOT CPT-4 D7140 Jun 22, 2015 INTRAORL-PERIAPICAL 1 FILM 04164 CPT-4 D0220 Jun 22, 2015 Vital Signs Date/Time: Jun 22, 2015 Blood Pressure Diastolic 88 mmHg Blood Pressure Systolic 123 mmHg Results No Known Results Summary Purpose [employer] Submission
--- OUTSIDE RECORDS SUMMARY | 2018-07-14 01:04 | XMS REPORT | Continuity of Care Document ---
Author Author [facility] Organization [facility] Address Unknown Phone Unavailable Allergies Active Description Code Type Severity Reaction Onset Reported/Identified Relationship to Patient Clinical Status Yes No Known Drug Allergies [id number] Drug Allergy Unknown N/A 01/07/2011 Medications There is no data. Problems Date Dx Coded Attending Type Code Diagnosis Diagnosed By 01/07/2011 Ot 599.0 01/07/2011 Ot 789.00 02/21/2011 Ot 850.0 02/21/2011 Ot 959.01 02/21/2011 Ot E000.8 02/21/2011 Ot E849.4 02/21/2011 Ot E960.0 04/09/2015 KARINA SEYMOUR SET UP AND LAY OUT INSPECTOR Ot 522.5 PERIAPICAL ABSCESS 04/30/2015 KARINA SEYMOUR SET UP AND L[employer] OUT INSPECTOR Ot 305.70 AMPHETAMINE ABUSE-UNSPEC 04/30/2015 KARINA SEYMOUR SET UP AND L[employer] OUT INSPECTOR Ot 523.31 AGGRESSIVE PERIODONTITIS, LOCALIZED 04/30/2015 KARINA SEYMOUR SET UP AND LAY OUT INSPECTOR Ot 525.9 DENTAL DISORDER NOS 09/03/2017 ERIC MARTE MD Ot F17.210 NICOTINE DEPENDENCE, CIGARETTES, UNCOMPL 09/03/2017 ERIC MARTE MD Ot O23.41 UNSP INFCT OF URINARY TRACT IN 09/03/2017 ERIC MARTE MD Ot O26.851 SPOTTING COMPLICATING , FIRST T 09/03/2017 ERIC MARTE MD Ot O99.331 SMOKING (TOBACCO) COMPLICATING 09/03/2017 ERIC MARTE MD Ot Z3A.01 LESS THAN 8 WEEKS GESTATION OF 09/05/2017 ERIC MARTE MD Ot F17.210 NICOTINE DEPENDENCE, CIGARETTES, UNCOMPL 09/05/2017 ERIC MARTE MD Ot O23.41 UNSP INFCT OF URINARY TRACT IN 09/05/2017 RAY MARTE MDUA T Ot O26.851 SPOTTING COMPLICATING , FIRST T 09/05/2017 ROSANNA BECKER, ERIC Fox Ot O99.331 SMOKING (TOBACCO) COMPLICATING 09/05/2017 ROSANNA BECKER, ERIC Fox Ot Z3A.01 LESS THAN 8 WEEKS GESTATION OF 12/02/2017 CARLITA FARRAR QUYEN Gonzalez Ot Z36.89 ENCOUNTER FOR OTHER SPECIFIED 12/02/2017 CARLITA FARRARQUYEN Ot Z3A.20 20 WEEKS GESTATION OF 12/16/2017 CARLITA FARRARQUYEN Lisa Ot Z36.89 ENCOUNTER FOR OTHER SPECIFIED 12/16/2017 CARLITA FARRARQUYEN Lisa Ot Z3A.20 20 WEEKS GESTATION OF 05/01/2018 CARLITA FARRARQUYEN Ot D62 ACUTE POSTHEMORRHAGIC ANEMIA 05/01/2018 CARLITA FARRARQUYEN Ot O48.0 POST-TERM 05/01/2018 CARLITA FARRARQUYEN Lisa Ot O69.81X0 LABOR AND DEL COMP BY CORD AROUND NECK, 05/01/2018 CARLITA FARRARQUYEN Ot O76 ABNLT IN HEART RATE AND RHYTHM COM 05/01/2018 CARLITA FARRARQUYEN Ot O77.0 LABOR AND DELIVERY COMPLICATED BY MECONI 05/01/2018 CARLITA FARRARQUYEN Ot O90.81 ANEMIA OF THE PUERPERIUM 05/01/2018 CARLITA FARRARQUYEN Ot Z23 ENCOUNTER FOR IMMUNIZATION 05/01/2018 CARLITA FARRAR QUYEN Gonzalez Ot Z37.0 SINGLE LIVE 05/01/2018 CARLITA FARRAR QUYEN Gonzalez Ot Z3A.41 41 WEEKS GESTATION OF Procedures Code Description Performed By Performed On [id number] INTRODUCE [facility] THERAP SUBST IN MOUTH/PHAR 04/28/2018 [id number] EXTRACTION OF POC, LOW CERVICAL, OPEN AP 04/29/2018 Results Test Result Range Complete urinalysis with reflex to culture - 09/03/17 19:34 Urine color determination YELLOW NRG Urine clarity determination SLIGHTLY CLOUDY NRG Urine pH measurement by test strip 7 5-9 Specific gravity of urine by test strip 1.010 1.016- 1.022 Urine protein assay by test strip, semi-quantitative 1+ NEGATIVE Urine glucose detection by automated test strip NEGATIVE NEGATIVE Erythrocytes detection in urine sediment by light microscopy 2+ NEGATIVE Urine ketones detection by automated test strip NEGATIVE NEGATIVE Urine nitrite detection by test strip NEGATIVE NEGATIVE Urine total bilirubin detection by test strip NEGATIVE NEGATIVE Urine urobilinogen measurement by automated test strip (mass/volume) NORMAL NORMAL Urine leukocyte esterase detection by dipstick 3+ NEGATIVE Automated urine sediment erythrocyte count by microscopy (number/high power field) [HPF] NRG Automated urine sediment leukocyte count by microscopy (number/high power field ) TNTC NRG Bacteria detection in urine sediment by light microscopy LARGE NRG Squamous epithelial cells detection in urine sediment by light microscopy >50 NRG Crystals detection in urine sediment by light microscopy NONE NRG Casts detection in urine sediment by light microscopy NONE NRG Mucus detection in urine sediment by light microscopy SMALL NRG Complete urinalysis with reflex to culture YES NRG Bacterial urine culture - 09/03/17 19:34 Bacterial urine culture [id number] NRG COLONY COUNT <10,000 NRG FTX;REPORTABLE (COAGULASE NEGATIVE STAPHYLOCOCCUS) NRG URINE CULTURE RESULTS PLUS NRG FREE TEXT ENTRY 2 SEE COMMENT NRG Complete blood count (CBC) with automated white blood cell (WBC) differential - 09/03/17 19:58 Blood leukocytes automated count (number/volume) 13.4 10*3/uL 4.3-11.0 Blood erythrocytes automated count (number/volume) 4.42 10*6/uL 4.35-5.85 Venous blood hemoglobin measurement (mass/volume) 13.1 g/dL 11.5-16.0 Blood hematocrit (volume fraction) 38 % 35-52 Automated erythrocyte mean corpuscular volume 85 [foz_us] 80-99 Automated erythrocyte mean corpuscular hemoglobin (mass per erythrocyte) 30 pg 25-34 Automated erythrocyte mean corpuscular hemoglobin concentration measurement ( mass/volume) 35 g/dL 32-36 Automated erythrocyte distribution width ratio 13.6 % 10.0-14.5 Automated blood platelet count (count/volume) 216 10*3/uL 130-400 Automated blood platelet mean volume measurement 12.2 [foz_us] 7.4-10.4 Automated blood neutrophils/100 leukocytes 72 % 42-75 Automated blood lymphocytes/100 leukocytes 17 % 12-44 Blood monocytes/100 leukocytes 5 % 0-12 Automated blood eosinophils/100 leukocytes 6 % 0-10 Automated blood basophils/100 leukocytes 0 % 0-10 Blood neutrophils automated count (number/volume) 9.7 10*3 1.8-7.8 Blood lymphocytes automated count (number/volume) 2.3 10*3 1.0-4.0 Blood monocytes automated count (number/volume) 0.6 10*3 0.0-1.0 Automated eosinophil count 0.8 10*3/uL 0.0-0.3 Automated blood basophil count (count/volume) 0.1 10*3/uL 0.0-0.1 ABO+Rh group - 09/03/17 19:58 ABO+Rh group AP NRG Transfusion band number [id number] NRG Serum or plasma choriogonadotropin measurement (units/volume) - 09/03/17 19:58 Serum or plasma choriogonadotropin measurement (units/volume) [id number] m[iU]/mL <5 Bacteria identification in genital specimen by aerobe culture - 09/03/17 20:09 FREE TEXT EXTERNAL PLUS MODERATE NORMAL PAIGE NRG QUANTITY OF GROWTH Abundant Growth NRG Bacteria identification in genital specimen by aerobe culture [id number] NRG FREE TEXT EXTERNAL 2 NO BETA STREPTOCOCCUS OBSERVED NRG FREE TEXT EXTERNAL 3 ON CULTURE. NRG Microscopic examination by wet preparation - 09/03/17 20:09 WET PREP RESULTS 09-04-17 NRG Neisseria gonorrhoeae DNA detection by probe and signal amplification method - 09/03/17 20:09 Gonorrhea amp DNA-urine Not Detected Not Detected Chlamydia trachomatis DNA detection by probe and signal amplification method - 09/03/17 20:09 Chlamydia trachomatis DNA detection by probe and target amplification method Not Detected Not Detected Complete urinalysis with reflex to culture - 04/28/18 20:20 Urine color determination YELLOW NRG Urine clarity determination SLIGHTLY CLOUDY NRG Urine pH measurement by test strip 6.5 5-9 Specific gravity of urine by test strip 1.020 1.016- 1.022 Urine protein assay by test strip, semi-quantitative 1+ NEGATIVE Urine glucose detection by automated test strip NEGATIVE NEGATIVE Erythrocytes detection in urine sediment by light microscopy 4+ NEGATIVE Urine ketones detection by automated test strip NEGATIVE NEGATIVE Urine nitrite detection by test strip NEGATIVE NEGATIVE Urine total bilirubin detection by test strip NEGATIVE NEGATIVE Urine urobilinogen measurement by automated test strip (mass/volume) NORMAL NORMAL Urine leukocyte esterase detection by dipstick NEGATIVE NEGATIVE Automated urine sediment erythrocyte count by microscopy (number/high power field) > [HPF] NRG Automated urine sediment leukocyte count by microscopy (number/high power field ) NONE NRG Bacteria detection in urine sediment by light microscopy FEW NRG Crystals detection in urine sediment by light microscopy PRESENT NRG Casts detection in urine sediment by light microscopy NONE NRG Mucus detection in urine sediment by light microscopy NEGATIVE NRG Complete urinalysis with reflex to culture NO NRG Amorphous sediment detection in urine sediment by light microscopy FEW NARESH URATES NRG Urine drug screening test - 04/28/18 20:20 Urine phencyclidine detection by screening method NEGATIVE NEGATIVE Urine benzodiazepines detection by screening method NEGATIVE NEGATIVE Urine cocaine detection NEGATIVE NEGATIVE Urine amphetamines detection by screening method NEGATIVE NEGATIVE Urine methamphetamine detection by screening method NEGATIVE NEGATIVE Urine cannabinoids detection by screening method NEGATIVE NEGATIVE Urine opiates detection by screening method NEGATIVE NEGATIVE Urine barbiturates detection NEGATIVE NEGATIVE Screening urine tricyclic antidepressants detection NEGATIVE NEGATIVE Urine methadone detection by screening method NEGATIVE NEGATIVE Urine oxycodone detection NEGATIVE NEGATIVE Urine propoxyphene detection NEGATIVE NEGATIVE Complete blood count (CBC) with automated white blood cell (WBC) differential - 04/28/18 20:25 Blood leukocytes automated count (number/volume) 14.7 10*3/uL 4.3-11.0 Blood erythrocytes automated count (number/volume) 4.01 10*6/uL 4.35-5.85 Venous blood hemoglobin measurement (mass/volume) 11.9 g/dL 11.5-16.0 Blood hematocrit (volume fraction) 35 % 35-52 Automated erythrocyte mean corpuscular volume 87 [foz_us] 80-99 Automated erythrocyte mean corpuscular hemoglobin (mass per erythrocyte) 30 pg 25-34 Automated erythrocyte mean corpuscular hemoglobin concentration measurement ( mass/volume) 34 g/dL 32-36 Automated erythrocyte distribution width ratio 14.8 % 10.0-14.5 Automated blood platelet count (count/volume) 233 10*3/uL 130-400 Automated blood platelet mean volume measurement 12.2 [foz_us] 7.4-10.4 Automated blood neutrophils/100 leukocytes 83 % 42-75 Automated blood lymphocytes/100 leukocytes 10 % 12-44 Blood monocytes/100 leukocytes 4 % 0-12 Automated blood eosinophils/100 leukocytes 4 % 0-10 Automated blood basophils/100 leukocytes 0 % 0-10 Blood neutrophils automated count (number/volume) 12.1 10*3 1.8-7.8 Blood lymphocytes automated count (number/volume) 1.4 10*3 1.0-4.0 Blood monocytes automated count (number/volume) 0.6 10*3 0.0-1.0 Automated eosinophil count 0.5 10*3/uL 0.0-0.3 Automated blood basophil count (count/volume) 0.0 10*3/uL 0.0-0.1 Blood manual differential performed detection - 04/28/18 20:25 Blood monocytes/100 leukocytes 3 % NRG Manual blood segmented neutrophils/100 leukocytes 65 % NRG Blood band neutrophils/100 leukocytes 18 % NRG Manual blood lymphocytes/100 leukocytes 13 % NRG Manual eosinophils/100 leukocytes in nose 1 % NRG Manual blood basophils/100 leukocytes 0 % NRG Blood erythrocyte morphology finding identification NORMAL NRG Blood type T Indirect antibody screen panel - 04/28/18 20:25 ABO+Rh group AP NRG Transfusion band number [id number] NRG Blood group antibody screen NEGATIVE NRG Complete blood count (CBC) with automated white blood cell (WBC) differential - 04/30/18 04:40 Blood leukocytes automated count (number/volume) 19.5 10*3/uL 4.3-11.0 Blood erythrocytes automated count (number/volume) 3.29 10*6/uL 4.35-5.85 Venous blood hemoglobin measurement (mass/volume) 9.7 g/dL 11.5-16.0 Blood hematocrit (volume fraction) 29 % 35-52 Automated erythrocyte mean corpuscular volume 88 [foz_us] 80-99 Automated erythrocyte mean corpuscular hemoglobin (mass per erythrocyte) 29 pg 25-34 Automated erythrocyte mean corpuscular hemoglobin concentration measurement ( mass/volume) 33 g/dL 32-36 Automated erythrocyte distribution width ratio 14.8 % 10.0-14.5 Automated blood platelet count (count/volume) 196 10*3/uL 130-400 Automated blood platelet mean volume measurement 11.6 [foz_us] 7.4-10.4 Automated blood neutrophils/100 leukocytes 82 % 42-75 Automated blood lymphocytes/100 leukocytes 10 % 12-44 Blood monocytes/100 leukocytes 7 % 0-12 Automated blood eosinophils/100 leukocytes 1 % 0-10 Automated blood basophils/100 leukocytes 0 % 0-10 Blood neutrophils automated count (number/volume) 16.0 10*3 1.8-7.8 Blood lymphocytes automated count (number/volume) 2.0 10*3 1.0-4.0 Blood monocytes automated count (number/volume) 1.4 10*3 0.0-1.0 Automated eosinophil count 0.1 10*3/uL 0.0-0.3 Automated blood basophil count (count/volume) 0.0 10*3/uL 0.0-0.1 Encounters ACCT No. Visit Date/Time Discharge Status Pt. Type Provider Facility Loc./Unit Complaint [id number] 04/28/2018 20:09:00 05/01/2018 21:00:00 DIS Inpatient CARLITA FARRAR QUYEN Gonzalez [facility] LDRP INTOLERANCE [id number] 12/01/2017 10:15:00 12/01/2017 23:59:59 CLS Outpatient CARLITA FARRAR QUYEN Lisa [facility] RAD Z33.1 [id number] 09/03/2017 19:30:00 09/03/2017 21:36:00 DIS Emergency ROSANNA BECKER, ERIC Fox [facility] ER ABD PAIN;SPOTTING; 7WKS [id number] 04/30/2015 12:58:00 04/30/2015 14:17:00 DIS Emergency KARINA SEYMOUR SET UP AND LAY OUT INSPECTOR [facility] ER DENTAL PAIN [id number] 04/09/2015 15:26:00 04/09/2015 17:09:00 DIS Emergency KARINA SEYMOUR SET UP AND LAY OUT INSPECTOR [facility] ER ABCESS TOOTH [id number] 02/21/2011 00:53:00 Document Registration [id number] 01/07/2011 17:58:00 Document Registration [id number] 04/30/2015 12:59:16 ACT Document Registration
--- NOTE | 2018-07-14 02:01 | ED EENT ---
History of Present Illness General Chief Complaint: Oral/Throat Problems Stated Complaint: SORE THROAT,CONGESTION Nursing Triage Note: PT STARTED HAVING A SORE THROAT FRIDAY AND THROUGHOUT THE NIGHT LAST NIGHT SHE STARTED SWEATING. PT STATED IT HURTS TO SWALLOW AND SHE LOOKED IN THE BACK OF HER THROAT AND NOTICED PUS POCKETS. Source: patient Exam Limitations: no limitations History of Present Illness Date Seen by Provider: Jul 14, 2018 Time Seen by Provider: 01:48 Initial Comments Patient presents to ER by private conveyance with his significant other and chief complaint she's having some sore throat for the past one day as well as some white flecks seen on her tonsils. She's had some body aches malaise no documented fevers. No history of surgeries. She's taken Tylenol Motrin occasionally with modest relief. Allergies and Home Medications Allergies Coded Allergies: No Known Drug Allergies (Unverified , 01/07/11) Home Medications Docusate Sodium 100 Mg Capsule, 100 MG PO BID PRN for CONSTIPATION-1ST LINE Prescribed by: QUYEN ZAZUETA on 04/29/18 0942 Hydrocodone Bit/Acetaminophen 1 Tab Tab, 1-2 TAB PO Q4H PRN for PAIN-MODERATE Prescribed by: QUYEN ZAZUETA on 04/29/18 0942 Ibuprofen 600 Mg Tablet, 600 MG PO Q6H Prescribed by: QUYEN ZAZUETA on 04/29/18 0942 Vit W-Ca,Fe,FA(<1 mg) 1 Each Tablet, 1 EACH PO DAILY, (Reported) Patient Home Medication List Home Medication List Reviewed: Yes Review of Systems Review of Systems Constitutional: No chills, No diaphoresis Eyes: Denies Blindness, Denies Blurred Vision Ears: Denies Dizziness, Denies Pain Nose: denies clots, denies congestion Mouth: denies clots, denies loose teeth Throat: pain, swelling, discharge; denies neck stiffness, denies hoarse Past Rgkmaws-Pbfaxe-Kghkxi Hx Patient Social History Alcohol Use: Occasionally Uses Recreational Drug Use: No Drug of Choice: THC, IV methamphetamines Smoking Status: Current Everyday Smoker Type Used: Cigarettes Recent Foreign Travel: No Contact w/Someone Who Travel: No Recent Infectious Disease Expo: No Recent Hopitalizations: No Physical Abuse: No Sexual Abuse: No Mistreated: No Fear: No Seasonal Allergies Seasonal Allergies: Yes Past Medical History Surgeries: Yes Respiratory: No Cardiac: No Neurological: No Last Menstrual Period: Jul 07, 2018 Reproductive Disorders: No Genitourinary: No Gastrointestinal: No Musculoskeletal: Yes Endocrine: No HEENT: No Cancer: No Psychosocial: No Integumentary: No Blood Disorders: No Family Medical History Diabetes mellitus GRANDFATHER, PATERNAL (Type II) Myocardial infarction GRANDFATHER, PATERNAL No Pertinent Family Hx Physical Exam Vital Signs Vital Signs - First Documented 07/14/18 01:25 Temp 98.7 Pulse 96 Resp 18 B/P (MAP) 122/68 (86) Pulse Ox 98 O2 Delivery Room Air Height, Weight, BMI Height: 5'4.00" Weight: 150lbs. 0.0oz. 68.178655my; 30.7 BMI Method:Stated General Appearance: WD/WN, no apparent distress Eyes: bilateral eye normal inspection, bilateral eye PERRL, bilateral eye EOMI Ears: bilateral ear auricle normal, bilateral ear canal normal, bilateral ear TM normal Nose: normal inspection; No active bleeding, No discharge Mouth/Throat: normal mouth inspection, tonsillar exudate, tonsillar swelling ( injection bilateral) Neck: non-tender, supple, normal inspection Cardiovascular: normal peripheral pulses, regular rate, rhythm Respiratory: no respiratory distress, no accessory muscle use Progress/Results/Core Measures Results/Orders Lab Results Laboratory Tests Test 07/14/18 02:01 Range/Units Group A Streptococcus Screen NEGATIVE NEGATIVE My Orders Orders - WALDO CANDELARIA Rapid Strep A Screen (07/14/18 01:56) Vital Signs/I&O 07/14/18 01:25 Temp 98.7 Pulse 96 Resp 18 B/P (MAP) 122/68 (86) Pulse Ox 98 O2 Delivery Room Air Blood Pressure Mean: 86 Departure Impression Primary Impression: Tonsillopharyngitis Disposition: HOME, SELF-CARE Condition: Stable Departure-Patient Inst. Decision time for Depature: 03:00 Referrals: NO,LOCAL PHYSICIAN (PCP/Family) Primary Care Physician Patient Instructions: Viral Pharyngitis (DC) Add. Discharge Instructions: Salt water gargles every 1 hour as needed for sore throat. Tylenol, Motrin, sprays for the throat such as Chloraseptic spray as needed. Humidifiers and vapor rubs like Vicks or Mentholatum. If your culture comes back positive for the next 2-3 days we'll give you a call and send out an antibiotic prescription. Otherwise expect relief in 5-10 days. Drink plenty fluids. All discharge instructions reviewed with patient and/or family. Voiced understanding. WALDO CANDELARIA Jul 14, 2018 02:01
[2018-07-14 03:08] VITALS: BP 122/68
== END 2018-07-14 03:08 | disposition home or self-care (01) ==
LOC: EDUNIT# 00:57 → ER 00:59
DX: J02.9 Acute pharyngitis, unspecified (principal); J03.90 Acute tonsillitis, unspecified; F12.10 Cannabis abuse, uncomplicated; F15.10 Other stimulant abuse, uncomplicated; F17.210 Nicotine dependence, cigarettes, uncomplicated; Z82.49 Family history of ischemic heart disease and other diseases of the circulatory system
CPT/HCPCS: 87430; 99284

== ENCOUNTER 2018-09-10 19:04 | Emergency (ER) | payer MEDICAID ==
[~2018-09-10] VITALS: Ht 162.6 cm; Wt 68.0 kg
[2018-09-10] MEDS ORDERED: AMOX-358 PO (19:40)
--- NOTE | 2018-09-10 19:40 | ED EENT ---
History of Present Illness General Chief Complaint: Dental Problems/Pain Stated Complaint: DENTAL PAIN Source: patient Exam Limitations: no limitations History of Present Illness Date Seen by Provider: Sep 10, 2018 Time Seen by Provider: 19:37 Initial Comments 22-year-old female presents to the emergency room with complaints of dental pain and abscess to the left lower jaw. She reports this is been going on for several months but has become worse the last few days. She has tried over-the- counter medications without relief. Denies fevers. Timing/Duration: last week Location: dental Prearrival Treatment: over the counter meds Associated Symptoms: tooth pain Allergies and Home Medications Allergies Coded Allergies: No Known Drug Allergies (Unverified , 01/07/11) Home Medications Amoxicillin/Potassium Clav 1 Each Tablet, 1 EACH PO BID Prescribed by: DUSTIN AMAYA on 09/10/181939 Docusate Sodium 100 Mg Capsule, 100 MG PO BID PRN for CONSTIPATION-1ST LINE Prescribed by: QUYEN ZAZUETA on 04/29/18 09 Hydrocodone Bit/Acetaminophen 1 Tab Tab, 1-2 TAB PO Q4H PRN for PAIN-MODERATE Prescribed by: QUYEN ZAZUETA on 04/29/18 0942 Ibuprofen 600 Mg Tablet, 600 MG PO Q6H Prescribed by: QUYEN ZAZUETA on 04/29/18 0942 Vit W-Ca,Fe,FA(<1 mg) 1 Each Tablet, 1 EACH PO DAILY, (Reported) Patient Home Medication List Home Medication List Reviewed: Yes Review of Systems Review of Systems Constitutional: no symptoms reported, see HPI Mouth: see HPI, pain (dental pain) All Other Systems Reviewed Negative Unless Noted: Yes Past Ybefbog-Gkzeon-Zgtjqv Hx Past Med/Social Hx: Reviewed Nursing Past Med/Soc Hx Patient Social History Drug of Choice: THC, IV methamphetamines Type Used: Cigarettes Recent Foreign Travel: No Contact w/Someone Who Travel: No Recent Hopitalizations: No Seasonal Allergies Seasonal Allergies: Yes Past Medical History Surgeries: Yes Respiratory: No Cardiac: No Neurological: No Reproductive Disorders: No Genitourinary: No Gastrointestinal: No Musculoskeletal: Yes Endocrine: No HEENT: No Cancer: No Psychosocial: No Integumentary: No Blood Disorders: No Family Medical History Reviewed Nursing Family Hx Diabetes mellitus GRANDFATHER, PATERNAL (Type II) Myocardial infarction GRANDFATHER, PATERNAL No Pertinent Family Hx Physical Exam Vital Signs Vital Signs - First Documented 09/10/18 09/10/18 19:26 19:58 Temp 97.8 Pulse 92 Resp 17 B/P (MAP) 118/80 (93) Pulse Ox 99 Height, Weight, BMI Height: 5'4.00" Weight: 150lbs. 0.0oz. 68.353115rp; 30.7 BMI Method:Stated General Appearance: WD/WN, no apparent distress Mouth/Throat: normal mouth inspection, pharynx normal, other (dental tenderness and caries. Redness and swelling to the gums as noted in the images.) Cardiovascular: normal peripheral pulses, regular rate, rhythm, no edema, no gallop, no JVD, no murmur Respiratory: chest non-tender, lungs clear, normal breath sounds, no respiratory distress, no accessory muscle use Progress/Results/Core Measures Results/Orders My Orders Orders - DUSTIN AMAYA Ibuprofen Tablet (Motrin Tablet) (09/10/18 19:45) Amoxicillin/Clavulanate Tablet (Augmenti (09/10/18 19:45) Lidocaine 2% Viscous 15 Ml (Xylocaine Vi (09/10/18 19:45) Departure Impression Primary Impression: Dental abscess Disposition: 01 HOME, SELF-CARE Condition: Stable/Unchanged Departure-Patient Inst. Decision time for Depature: 19:38 Referrals: NO,LOCAL PHYSICIAN (PCP/Family) Primary Care Physician Patient Instructions: Tooth Abscess (DC) Add. Discharge Instructions: Take medications as directed. You may use ibuprofen and Tylenol as directed by the bottle for pain relief. Do not fall asleep with one of the numbing gauze gauze and your mouth as this could be a choking hazard. This also will numb the entire area that it touches to be sure not bite her tongue. Call first thing tomorrow morning for an appointment time with your dentist. Return back to the emergency room for worsening symptoms or concerns as needed. All discharge instructions reviewed with patient and/or family. Voiced understanding. Scripts Amoxicillin/Potassium Clav (Augmentin 875-125 Tablet) 1 Each Tablet 1 EACH PO BID for 7 Days, #14 TAB Prov: DUSTIN AMAYA 09/10/18 Images Mouth/Nose 1 - Caries, Fracture Tooth, Swelling, Tenderness DUSTIN AMAYA Sep 10, 2018 19:40
[2018-09-10] MEDS ORDERED: LIDOCAINE 2% VISCOUS 15 ML UDC PO ONE (19:45)
[2018-09-10] MEDS ORDERED: IBUPROFEN 800 MG (MOTRIN) TAB PO ONE (19:45)
[2018-09-10] MEDS ORDERED: AUGMENTIN 875 MG TAB (AMOXICILLIN/CLAVULANATE) PO SCH (19:45)
[2018-09-10 19:58] VITALS: BP 118/80
== END 2018-09-10 19:58 | disposition home or self-care (01) ==
LOC: EDUNIT# 19:04 → ER 19:05
DX: K04.7 Periapical abscess without sinus (principal); F12.10 Cannabis abuse, uncomplicated; F15.10 Other stimulant abuse, uncomplicated; Z82.49 Family history of ischemic heart disease and other diseases of the circulatory system
CPT/HCPCS: 99283

== ENCOUNTER 2019-08-24 00:34 | Emergency (ER) | payer SELFPAY ==
[~2019-08-24] VITALS: Ht 162.5 cm; Wt 59.6 kg
[~2019-08-24 00:34] MED LIST changes: +AMOX-358 PO
[2019-08-24] MEDS ORDERED: AMOXICILLIN 500 MG (POLYMOX) CAP PO STA (01:41)
--- NOTE | 2019-08-24 01:45 | ED EENT ---
History of Present Illness General Chief Complaint: Dental Problems/Pain Stated Complaint: DENTAL PAIN Nursing Triage Note: "I HAVE A BAD TOOTH AND I FELT A POP AND EXTREME PAIN IN MY LEFT EAR AND IT FELT LIKE MY TOOTH MOVED." NOTED SWELLING ON LEFT LOWER JAW AREA. Source: patient Exam Limitations: no limitations (WILMER MANN MED STUDENT) History of Present Illness Date Seen by Provider: Aug 24, 2019 Time Seen by Provider: 01:39 Initial Comments Pt complains of dental pain beginning three days ago. States pain is constant, achy and localizes to left lower molars. Feels as though the tooth is being pushed up. 20 minutes before arrival, she felt a popping sensation, which alleviated her pain. Denies any fever, chills, vomiting but endorses nausea. Timing/Duration: last week Location: dental Prearrival Treatment: no prearrival treatment Associated Symptoms: No cough, No drooling; facial pain/swelling; No fever, No nasal congestion/drainage, No sinus infection, No sore throat; tooth pain (WILMER MANN MED STUDENT) Allergies and Home Medications Allergies Coded Allergies: No Known Drug Allergies (Unverified , 08/24/19) Patient Home Medication List Home Medication List Reviewed: Yes (WILMER MANN MED STUDENT) Home Medication List Reviewed: Yes (CECILIA ALANIS MD) Review of Systems Review of Systems Constitutional: No chills, No fever Ears: Pain (pressure ); Denies Bloody Discharge, Denies Clear Discharge, Denies Purulent Discharge Mouth: see HPI, loose teeth, pain; denies bloody discharge, denies clear discharge, denies purulent discharge, denies serosanguinous discharge Throat: denies pain, denies swelling Respiratory: No cough, No short of breath Cardiovascular: No chest pain, No edema (WILMER MANN MED STUDENT) Constitutional: no symptoms reported Mouth: see HPI, loose teeth, pain Respiratory: no symptoms reported Cardiovascular: no symptoms reported (CECILIA ALANIS MD) Past Auisprn-Gkavyw-Phlppk Hx Past Med/Social Hx: Reviewed Nursing Past Med/Soc Hx (CECILIA ALANIS MD) Patient Social History Alcohol Use: Occasionally Uses Recreational Drug Use: Yes Drug of Choice: THC, IV methamphetamines Type Used: Cigarettes Recent Foreign Travel: No Contact w/Someone Who Travel: No Recent Infectious Disease Expo: No Recent Hopitalizations: No Physical Abuse: No Sexual Abuse: No Mistreated: No Fear: No (WILMER MANN MED STUDENT) Seasonal Allergies Seasonal Allergies: Yes (WILMER MANN MED STUDENT) Past Medical History Surgeries: Yes (WIDOM TEETH) Respiratory: No Cardiac: No Neurological: No Last Menstrual Period: Aug 17, 2019 Reproductive Disorders: No Genitourinary: No Gastrointestinal: No Musculoskeletal: No Endocrine: No HEENT: No Cancer: No Psychosocial: No Integumentary: No Blood Disorders: No (WILMER MANN MED STUDENT) Family Medical History Diabetes mellitus GRANDFATHER, PATERNAL (Type II) Myocardial infarction GRANDFATHER, PATERNAL No Pertinent Family Hx (WILMER MANN MED STUDENT) Physical Exam Vital Signs Vital Signs - First Documented 08/24/19 01:20 Temp 37.1 Pulse 89 Resp 18 B/P (MAP) 125/89 (101) Pulse Ox 100 (CECILIA ALANIS MD) Height, Weight, BMI Height: 5'4.00" Weight: 150lbs. 0.0oz. 68.276448lq; 22.00 BMI Method:Stated General Appearance: WD/WN, no apparent distress Eyes: bilateral eye PERRL, bilateral eye EOMI Ears: bilateral ear auricle normal, bilateral ear canal normal, bilateral ear TM normal Nose: normal inspection; No discharge Mouth/Throat: other (extensive erosion to L mandibular molars. Absent R mandibular 1st molar. Erythema along gumline. ) Cardiovascular: regular rate, rhythm, no gallop, no murmur Respiratory: chest non-tender, lungs clear, normal breath sounds, no respiratory distress, no accessory muscle use (WILMER MANN MED STUDENT) Mouth/Throat: pharynx normal, other (extensive erosion to L mandibular molars. Absent R mandibular 1st molar. Erythema along gumline. ) Neck: full range of motion, supple Neurologic/Psychiatric: alert, oriented x 3 (CECILIA ALANIS MD) Progress/Results/Core Measures Results/Orders My Orders Orders - CECILIA ALANIS MD Amoxicillin Capsule (Polymox Capsule) (08/24/19 01:41) (CECILIA ALANIS MD) Vital Signs/I&O 08/24/19 01:20 Temp 37.1 Pulse 89 Resp 18 B/P (MAP) 125/89 (101) Pulse Ox 100 (CECILIA ALANIS MD) Blood Pressure Mean: 101 Progress Progress Note : Time: 01:45 Progress Note Seen and evaluated. Will prescribe 500mg amoxicillin for 10 days. Pt missed dental appointment today but states she will schedule another to follow up. (WILMER MANN,MED STUDENT) Progress Note : Progress Note I have seen and evaluated the patient and agree with above except as indicated. I have directed the plan of care. Amoxicillin 500 mg by mouth ordered. We will continue this as outpatient. Discharged home with return precautions. Patient verbalize understanding instructions and agreement with plan. (CECILIA ALANIS MD) Departure Impression Primary Impression: Dental caries Additional Impression: Periapical abscess Disposition: HOME, SELF-CARE Condition: Stable Departure-Patient Inst. Decision time for Depature: 01:49 (CECILIA ALANIS MD) Referrals: NO,LOCAL PHYSICIAN (PCP/Family) Primary Care Physician Patient Instructions: Dental Pain (DC), Tooth Decay, Adult (DC) Add. Discharge Instructions: All discharge instructions reviewed with patient and/or family. Voiced understanding. You may take ibuprofen 600 mg every 8 hours as needed for pain. You may also take Tylenol/acetaminophen 1000 mg every 8 hours as needed for pain. You may use salt water rinses twice daily by rinsing and spitting. Follow-up with a dentist [facility]. Take medications as directed. Return for worse pain, fever, vomiting, breathing problems, swallowing problems or other concerns as needed. Scripts Amoxicillin (Amoxicillin) 500 Mg Capsule 500 MG PO TID, #30 CAP 0 Refills Prov: CECILIA ALANIS MD 08/24/19 WILMER MANN,MED STUDENT Aug 24, 2019 01:45 CECILIA ALANIS MD Aug 24, 2019 01:51
[2019-08-24] MEDS ORDERED: AMOX500C2 PO (01:51)
[2019-08-24 01:53] VITALS: BP 125/89
== END 2019-08-24 01:56 | disposition home or self-care (01) ==
LOC: EDUNIT# 00:34 → ER 00:37
DX: K02.9 Dental caries, unspecified (principal); K04.7 Periapical abscess without sinus; Z82.49 Family history of ischemic heart disease and other diseases of the circulatory system
CPT/HCPCS: 99283

== ENCOUNTER 2019-08-24 22:34 | Emergency (ER) | payer SELFPAY ==
[~2019-08-24] VITALS: Ht 163 cm; Wt 59.6 kg
[~2019-08-24 22:34] MED LIST changes: +AMOX500C2 PO
[2019-08-24] MEDS ORDERED: RX-HYDROCODONE/APAP 5/325 MG #4 TAB PK PO PRN (23:00)
[2019-08-24] MEDS ORDERED: cefTRIAXone 1,000 MG/2.86 ml vial (IM ONLY) IM SCH (23:00)
[2019-08-24] MEDS ORDERED: LIDOCAINE 1% INJ 20 ML 20 ML VIAL INJ ONE (23:00)
--- NOTE | 2019-08-24 23:06 | ED EENT ---
History of Present Illness General Stated Complaint: TOOTH PAIN Source: patient Exam Limitations: no limitations History of Present Illness Date Seen by Provider: Aug 24, 2019 Time Seen by Provider: 23:05 Initial Comments To ER with reports of left lower dental pain. She was seen here last night, given amoxicillin. She has not yet been able to fill that prescription, however she now notices some swelling to the left side of the mandible. Timing/Duration: abrupt Severity: moderate Location: dental Associated Symptoms: denies symptoms Allergies and Home Medications Allergies Coded Allergies: No Known Drug Allergies (Unverified , 08/24/19) Home Medications Amoxicillin 500 Mg Capsule, 500 MG PO TID Prescribed by: CECILIA ALANIS on 08/24/19 0151 Patient Home Medication List Home Medication List Reviewed: Yes Review of Systems Review of Systems Constitutional: see HPI Eyes: No Symptoms Reported Ears: No Symptoms Reported Nose: no symptoms reported Mouth: see HPI Throat: no symptoms reported Respiratory: no symptoms reported Cardiovascular: no symptoms reported Musculoskeletal: no symptoms reported Past Zsdlgru-Uwoubp-Cvqhvd Hx Patient Social History Drug of Choice: THC, IV methamphetamines Type Used: Cigarettes Recent Foreign Travel: No Contact w/Someone Who Travel: No Recent Hopitalizations: No Seasonal Allergies Seasonal Allergies: Yes Past Medical History Surgeries: Yes (WIDOM TEETH) Respiratory: No Cardiac: No Neurological: No Reproductive Disorders: No Genitourinary: No Gastrointestinal: No Musculoskeletal: No Endocrine: No HEENT: No Cancer: No Psychosocial: No Integumentary: No Blood Disorders: No Family Medical History Diabetes mellitus GRANDFATHER, PATERNAL (Type II) Myocardial infarction GRANDFATHER, PATERNAL No Pertinent Family Hx Physical Exam Height, Weight, BMI Height: 5'4.00" Weight: 150lbs. 0.0oz. 68.174457af; 22.00 BMI Method:Stated General Appearance: WD/WN, no apparent distress Eyes: bilateral eye normal inspection, bilateral eye PERRL, bilateral eye EOMI Ears: bilateral ear auricle normal, bilateral ear canal normal, bilateral ear TM normal Mouth/Throat: mandibular swelling Neck: non-tender, full range of motion Respiratory: normal breath sounds, no respiratory distress, no accessory muscle use Gastrointestinal: normal bowel sounds, non tender Neurologic/Psychiatric: alert, normal mood/affect, oriented x 3 Skin: normal color, warm/dry Progress/Results/Core Measures Results/Orders My Orders Orders - KARINA SEYMOUR APRN Ceftriaxone For Im Use (Rocephin For Im (08/24/19 23:00) Rx-Hydrocodone/Apap 5-325 Mg (Rx-Vicodin (08/24/19 23:00) Lidocaine 1% Inj 20 Ml (Xylocaine 1% Inj (08/24/19 23:00) Departure Communication (Admissions) We'll give a shot of Rocephin, pain medication and discharge. I do not palpate any fluctuance that would be amenable to drainage. Impression Primary Impression: Periodontal abscess Disposition: 01 HOME, SELF-CARE Condition: Improved Departure-Patient Inst. Decision time for Depature: 23:07 Referrals: NO,LOCAL PHYSICIAN (PCP/Family) Primary Care Physician Patient Instructions: Tooth Abscess (DC) Add. Discharge Instructions: 1. Return to ER for any concerns 2. Start the antibiotic tomorrow. Follow-up with your dentist as soon as possible. KARINA SEYMOUR APRN Aug 24, 2019 23:06
[2019-08-24 23:22] VITALS: BP 122/73
== END 2019-08-24 23:22 | disposition home or self-care (01) ==
LOC: EDUNIT# 22:34 → ER 22:35
DX: K04.7 Periapical abscess without sinus (principal)
CPT/HCPCS: 96372; 99284

== ENCOUNTER 2019-12-06 06:03 | Emergency (ER) | payer SELFPAY ==
[~2019-12-06] VITALS: Ht 162 cm; Wt 54.8 kg
--- NOTE | 2019-12-06 06:37 | ED Upper Extremity ---
General Chief Complaint: Upper Extremity Stated Complaint: RIGHT SHOULDER PAIN Source: patient Exam Limitations: no limitations History of Present Illness Date Seen by Provider: Dec 06, 2019 Time Seen by Provider: 06:27 Initial Comments Here with report of right shoulder pain and small left knee abrasion. She will This morning and it was dark. She was walking in her bedroom and tripped over her shoe and landed on her right shoulder. Denies loss of consciousness. She had main concern is that she thought her right shoulder was dislocated and that scared her and she panicked and came here. She did wrap it up in an Ipter wrap. Pain now is actually resolved and she has full range of motion of her shoulder. She states that she feels silly for coming especially since things are better. Abrasion to left knee is very minor. Last tetanus shot was about 2 years ago. Denies other injury or concerns. States that she is safe at home and nobody is hurting her. Onset: just prior to arrival Severity: mild Pain/Injury Location: right shoulder Method of Injury: fell Modifying Factors: Improves With Movement, Improves With Rest Allergies and Home Medications Allergies Coded Allergies: No Known Drug Allergies (Unverified , 08/24/19) Home Medications Amoxicillin 500 Mg Capsule, 500 MG PO TID Prescribed by: CECILIA ALANIS on 08/24/19 0151 Patient Home Medication List Home Medication List Reviewed: Yes Review of Systems Constitutional: no symptoms reported Respiratory: no symptoms reported Cardiovascular: no symptoms reported Musculoskeletal: see HPI Skin: see HPI Past Cokocrw-Lrfbku-Lajdgd Hx Past Med/Social Hx: Reviewed Nursing Past Med/Soc Hx Patient Social History Alcohol Use: Occasionally Uses Recreational Drug Use: Yes Drug of Choice: THC, IV methamphetamines Type Used: Cigarettes Recent Foreign Travel: No Contact w/Someone Who Travel: No Recent Hopitalizations: No Physical Abuse: No Sexual Abuse: No Mistreated: No Fear: No Immunizations Up To Date Tetanus Booster (TDap): Unknown Seasonal Allergies Seasonal Allergies: Yes Past Medical History Surgeries: Yes (WIDOM TEETH) Section Respiratory: No Cardiac: No Neurological: No Reproductive Disorders: No Genitourinary: No Gastrointestinal: No Musculoskeletal: No Endocrine: No HEENT: No Cancer: No Psychosocial: No Integumentary: No Blood Disorders: No Family Medical History Reviewed Nursing Family Hx Diabetes mellitus GRANDFATHER, PATERNAL (Type II) Myocardial infarction GRANDFATHER, PATERNAL No Pertinent Family Hx Physical Exam Vital Signs Capillary Refill : Height, Weight, BMI Height: 5'4.00" Weight: 150lbs. 0.0oz. 68.464718el; 22.00 BMI Method:Stated General Appearance: WD/WN, no apparent distress Cardiovascular: regular rate, rhythm, no murmur Respiratory: lungs clear, normal breath sounds Shoulder: normal inspection, non-tender, normal ROM Elbow/Forearm: no evidence of injury, Right, Left Neurologic/Psychiatric: alert, oriented x 3 Skin: warm/dry, ecchymosis (small to the lateral aspect of the right shoulder), other (half centimeter abrasion to left knee just proximal to the patella.) Progress/Results/Core Measures Progress Progress Note : Progress Note Seen and evaluated. I did review with the patient to ensure that she was safe at home. Denies other injury. Has full range of motion now. Her main concern was she had dislocated her shoulder which it is not. No further therapy indicated. Discharged home with return precautions. Patient verbalize understanding instructions and agreement with plan. Departure Impression Primary Impression: Contusion of right shoulder Qualified Codes: S40.011A - Contusion of right shoulder, initial encounter Disposition: HOME, SELF-CARE Condition: Improved Departure-Patient Inst. Decision time for Depature: 06:36 Referrals: NO,LOCAL PHYSICIAN (PCP/Family) Primary Care Physician Patient Instructions: Contusion (DC), Shoulder Pain (DC) Add. Discharge Instructions: All discharge instructions reviewed with patient and/or family. Voiced unde rstanding. Use ice packs to area of concern 20 minutes per hour as needed over the next one to 2 days. You may take Tylenol 650 mg every 6-8 hours as needed for pain. You may take ibuprofen 600 mg every 8 hours as needed for pain. Follow-up with your Dr. in a few days for recheck as needed. Return for worse pain, swelling, weakness or other concerns as needed. CECILIA ALANIS MD Dec 06, 2019 06:37
[2019-12-06 06:41] VITALS: BP 120/85
== END 2019-12-06 06:42 | disposition home or self-care (01) ==
LOC: EDUNIT# 06:03 → ER 06:06
DX: S40.011A Contusion of right shoulder, initial encounter (principal); F17.210 Nicotine dependence, cigarettes, uncomplicated; W18.09XA Striking against other object with subsequent fall, initial encounter; Y92.009 Unspecified place in unspecified non-institutional (private) residence as the place of occurrence of the external cause
CPT/HCPCS: 99282

== ENCOUNTER 2020-07-23 09:47 | Emergency (ER) | payer SELFPAY ==
[~2020-07-23] VITALS: Ht 162.5 cm; Wt 63.6 kg
[2020-07-23] MEDS ORDERED: fentaNYL INJECTION 100 MCG/2 ML AMP IVP STA (10:05)
[2020-07-23] MEDS ORDERED: KETOROLAC 30 MG/ML VIAL IVP STA (10:05)
[2020-07-23] MEDS ORDERED: LACTATED RINGERS 1,000 ML IV ONE (10:05)
[2020-07-23 10:13] LABS: BASOPHILS # (AUTO) 0.1 10^3/uL (0.0-0.1); BASOPHILS % (AUTO) 1 % (0-10); EOSINOPHILS # (AUTO) 0.9 10^3/uL (0.0-0.3); EOSINOPHILS % (AUTO) 7 % (0-10); HEMATOCRIT 39 % (35-52); HEMOGLOBIN 12.4 g/dL (11.5-16.0); LYMPHOCYTES # (AUTO) 4.1 10^3/uL (1.0-4.0); LYMPHOCYTES % (AUTO) 33 % (12-44); MEAN CORPUSCULAR HEMOGLOBIN 27 pg (25-34); MEAN CORPUSCULAR HGB CONC 32 g/dL (32-36); MEAN CORPUSCULAR VOLUME 86 fL (80-99); MEAN PLATELET VOLUME 11.1 fL (9.0-12.2); MONOCYTES # (AUTO) 0.6 10^3/uL (0.0-1.0); MONOCYTES % (AUTO) 5 % (0-12); NEUTROPHILS # (AUTO) 6.9 10^3/uL (1.8-7.8); NEUTROPHILS % (AUTO) 55 % (42-75); PLATELET COUNT 260 10^3/uL (130-400); WHITE BLOOD COUNT 12.6 10^3/uL (4.3-11.0)
[2020-07-23 10:18] LABS: ALBUMIN 3.7 GM/DL (3.2-4.5); CHLORIDE 107 MMOL/L (98-107); POTASSIUM 3.8 MMOL/L (3.6-5.0); SODIUM 140 MMOL/L (135-145)
[2020-07-23 10:19] LABS: CALCIUM 8.3 MG/DL (8.5-10.1)
[2020-07-23 10:20] LABS: GLUCOSE 90 MG/DL (70-105)
[2020-07-23 10:21] LABS: TOTAL PROTEIN 6.8 GM/DL (6.4-8.2)
[2020-07-23 10:22] LABS: BILIRUBIN,TOTAL 0.1 MG/DL (0.1-1.0); CARBON DIOXIDE 21 MMOL/L (21-32)
[2020-07-23 10:24] LABS: ALKALINE PHOSPHATASE 70 U/L (40-136); CREATININE SERUM 0.75 MG/DL (0.60-1.30); GFR ESTIMATED > 60
[2020-07-23 10:25] LABS: BUN/CREATININE RATIO 11
[2020-07-23 10:27] LABS: ALANINE AMINOTRANSFERASE 31 U/L (0-55)
[2020-07-23 10:27] LABS: BILIRUBIN,URINE NEGATIVE (NEGATIVE); CLARITY,URINE TURBID; COLOR,URINE YELLOW; GLUCOSE, URINE (UA) NEGATIVE (NEGATIVE); KETONES,URINE NEGATIVE (NEGATIVE); LEUKOCYTE ESTERASE ,URINE 2+ (NEGATIVE); NITRITE,URINE POSITIVE (NEGATIVE); PH,URINE 6.5 (5-9); PROTEIN,URINE TRACE (NEGATIVE)
--- NOTE | 2020-07-23 10:33 | NUR ---
UPDATE GIVEN TO STEVEN SAHU
[2020-07-23 10:34] LABS: BACTERIA,URINE LARGE /HPF; RBC,URINE 0-2 /HPF; WBC,URINE 25-50 /HPF
--- NOTE | 2020-07-23 10:35 | ED Abdominal Pain ---
General Chief Complaint: Abdominal/GI Problems Stated Complaint: ABD PAIN Nursing Triage Note: AMB TO ED C/O L SIDE PAIN INTERMITTEN X1 WEEK TODAY WOKE UP WITH PAIN AND IT DID NOT GO AWAY. NO VOMITING OR DIARRHEA. Sepsis Screen: No Definite Risk Source of Information: Patient Exam Limitations: No Limitations History of Present Illness Date Seen by Provider: Jul 23, 2020 Time Seen by Provider: 09:59 Initial Comments Here with report of rather severe left lower quadrant abdominal pain starting this morning. States that she has had intermittent pain for the last week. Denies vomiting or diarrhea. Denies blood in her urine or stool. She is sexually active with last activity about a week and a half ago. Does intermittently smoke marijuana with last use last night. Does not think she is . Denies vaginal discharge or bleeding. States pain is quite severe. Timing/Duration: 1-3 Hours Severity/Quality: Severe, Aching Location: LLQ, Flank (Left) Radiation: No Radiation Activities at Onset: None Modifying Factors: Worsens With Movement Associated Symptoms: No Back Pain, No Chest Pain, No Fever/Chills, No Nausea/Vomiting, No Shortness of Air, No Weakness Allergies and Home Medications Allergies Coded Allergies: No Known Drug Allergies (Unverified , 08/24/19) Home Medications Amoxicillin 500 Mg Capsule, 500 MG PO TID Prescribed by: CECILIA ALANIS on 08/24/19 0151 Patient Home Medication List Home Medication List Reviewed: Yes Review of Systems Review of Systems Constitutional: see HPI; No chills, No fever EENTM: No Symptoms Reported Respiratory: No Symptoms Reported Cardiovascular: No Symptoms Reported Gastrointestinal: Abdominal Pain; Denies Diarrhea, Denies Nausea, Denies Vomiting Genitourinary: No Symptoms Reported Musculoskeletal: no symptoms reported Skin: no symptoms reported All Other Systems Reviewed Negative Unless Noted: Yes Past Kvqrdjc-Lcupsm-Azudyu Hx Past Med/Social Hx: Reviewed Nursing Past Med/Soc Hx Patient Social History Alcohol Use: Denies Use Recreational Drug Use: Yes Drug of Choice: THC, IV methamphetamines Smoking Status: Current Everyday Smoker Type Used: Cigarettes Recent Foreign Travel: No Contact w/Someone Who Travel: No Recent Infectious Disease Expo: No Recent Hopitalizations: No Immunizations Up To Date Tetanus Booster (TDap): Unknown Seasonal Allergies Seasonal Allergies: Yes Past Medical History Surgeries: Yes (WIDOM TEETH) Section Respiratory: No Cardiac: No Neurological: No Last Menstrual Period: May 25, 2020 Reproductive Disorders: No Genitourinary: No Gastrointestinal: No Musculoskeletal: No Endocrine: No HEENT: No Cancer: No Psychosocial: No Integumentary: No Blood Disorders: No Family Medical History Reviewed Nursing Family Hx Diabetes mellitus GRANDFATHER, PATERNAL (Type II) Myocardial infarction GRANDFATHER, PATERNAL No Pertinent Family Hx Physical Exam Vital Signs Vital Signs - First Documented 07/23/20 09:50 Temp 36.0 Pulse 18 B/P (MAP) 120/0 (40) Pulse Ox 96 O2 Delivery Room Air Capillary Refill : Less Than 3 Seconds Height/Weight/BMI Height: 5'4.00" Weight: 150lbs. 0.0oz. 68.759059hb; 24.00 BMI Method:Stated General Appearance: WD/WN, no apparent distress HEENT: PERRL/EOMI, pharynx normal Neck: full range of motion, supple Respiratory: lungs clear, normal breath sounds Cardiovascular: regular rate, rhythm, no murmur Peripheral Pulses: 2+ Dorsalis Pedis (R), 2+ Left Dors-Pedis (L), 2+ Radial Pulses (R), 2+ Radial Pulses (L) Gastrointestinal: soft, guarding (Mild), tenderness (Left lower quadrant) Extremities: non-tender, normal inspection Back: normal inspection, no CVA tenderness, no vertebral tenderness Neurologic/Psychiatric: alert, oriented x 3 Skin: normal color, warm/dry Progress/Results/Core Measures Results/Orders Lab Results Laboratory Tests Test 07/23/20 10:01 07/23/20 10:21 Range/Units White Blood Count 12.6 H 4.3-11.0 10^3/uL Red Blood Count 4.53 3.80-5.11 10^6/uL Hemoglobin 12.4 11.5-16.0 g/dL Hematocrit 39 35-52 % Mean Corpuscular Volume 86 80-99 fL Mean Corpuscular Hemoglobin 27 25-34 pg Mean Corpuscular Hemoglobin Concent 32 32-36 g/dL Red Cell Distribution Width 13.3 10.0-14.5 % Platelet Count 260 130-400 10^3/uL Mean Platelet Volume 11.1 9.0-12.2 fL Immature Granulocyte % (Auto) 0 % Neutrophils (%) (Auto) 55 42-75 % Lymphocytes (%) (Auto) 33 12-44 % Monocytes (%) (Auto) 5 0-12 % Eosinophils (%) (Auto) 7 0-10 % Basophils (%) (Auto) 1 0-10 % Neutrophils # (Auto) 6.9 1.8-7.8 10^3/uL Lymphocytes # (Auto) 4.1 H 1.0-4.0 10^3/uL Monocytes # (Auto) 0.6 0.0-1.0 10^3/uL Eosinophils # (Auto) 0.9 H 0.0-0.3 10^3/uL Basophils # (Auto) 0.1 0.0-0.1 10^3/uL Immature Granulocyte # (Auto) 0.0 0.0-0.1 10^3/uL Sodium Level 140 135-145 MMOL/L Potassium Level 3.8 3.6-5.0 MMOL/L Chloride Level 107 98-107 MMOL/L Carbon Dioxide Level 21 21-32 MMOL/L Anion Gap 12 5-14 MMOL/L Blood Urea Nitrogen 8 7-18 MG/DL Creatinine 0.75 0.60-1.30 MG/DL Estimat Glomerular Filtration Rate > 60 BUN/Creatinine Ratio 11 Glucose Level 90 70-105 MG/DL Calcium Level 8.3 L 8.5-10.1 MG/DL Corrected Calcium 8.5 8.5-10.1 MG/DL Total Bilirubin 0.1 0.1-1.0 MG/DL Aspartate Amino Transf (AST/SGOT) 24 5-34 U/L Alanine Aminotransferase (ALT/SGPT) 31 0-55 U/L Alkaline Phosphatase 70 40-136 U/L C-Reactive Protein High Sensitivity 0.34 0.00-0.50 MG/DL Total Protein 6.8 6.4-8.2 GM/DL Albumin 3.7 3.2-4.5 GM/DL Human Chorionic Gonadotropin, Quant 38810 H <5 MIU/ML Serum Test, Qualitative POSITIVE NEGATIVE Urine Color YELLOW Urine Clarity TURBID Urine pH 6.5 5-9 Urine Specific [place] 1.025 H 1.016-1.022 Urine Protein TRACE H NEGATIVE Urine Glucose (UA) NEGATIVE NEGATIVE Urine Ketones NEGATIVE NEGATIVE Urine Nitrite POSITIVE H NEGATIVE Urine Bilirubin NEGATIVE NEGATIVE Urine Urobilinogen 1.0 < = 1.0 MG/DL Urine Leukocyte Esterase 2+ H NEGATIVE Urine RBC (Auto) NEGATIVE NEGATIVE Urine RBC 0-2 /HPF Urine WBC 25-50 H /HPF Urine Squamous Epithelial Cells 5-10 /HPF Urine Crystals NONE /LPF Urine Bacteria LARGE H /HPF Urine Casts NONE /LPF Urine Mucus SMALL H /LPF Urine Culture Indicated YES Urine Opiates Screen NEGATIVE NEGATIVE Urine Oxycodone Screen NEGATIVE NEGATIVE Urine Methadone Screen NEGATIVE NEGATIVE Urine Propoxyphene Screen NEGATIVE NEGATIVE Urine Barbiturates Screen NEGATIVE NEGATIVE Ur Tricyclic Antidepressants Screen NEGATIVE NEGATIVE Urine Phencyclidine Screen NEGATIVE NEGATIVE Urine Amphetamines Screen POSITIVE H NEGATIVE Urine Methamphetamines Screen POSITIVE H NEGATIVE Urine Benzodiazepines Screen NEGATIVE NEGATIVE Urine Cocaine Screen NEGATIVE NEGATIVE Urine Cannabinoids Screen POSITIVE H NEGATIVE My Orders Orders - CECILIA ALANIS MD Cbc With Automated Diff (07/23/20 10:05) Comprehensive Metabolic Panel (07/23/20 10:05) Hs C Reactive Protein (07/23/20 10:05) Hcg,Qualitative Serum (07/23/20 10:05) Ua Culture If Indicated (07/23/20 10:05) Ed Iv/Invasive Line Start (07/23/20 10:05) Lactated Ringers (Lr 1000 Ml Iv Solution (07/23/20 10:05) Fentanyl Injection (Sublimaze Injection (07/23/20 10:05) Ketorolac Injection (Toradol Injection) (07/23/20 10:05) Drug Screen Stat (Urine) (07/23/20 10:07) Hcg,Quantitative (07/23/20 10:24) Urine Culture (07/23/20 10:21) Ceftriaxone For Iv Use (Rocephin For I (07/23/20 11:21) Hydrocodone/Apap 5/325 Tablet (Lortab 5 (07/23/20 12:00) Medications Given in ED Current Medications Medications Dose Ordered Sig/Nam Route Start Time Stop Time Status Last Admin Dose Admin Lactated Ringer's 1,000 ml @ 0 mls/hr Q0M ONCE IV 07/23/20 10:05 07/23/20 10:07 DC 07/23/20 10:12 1,000 MLS/HR Vital Signs/I&O 07/23/20 09:50 Temp 36.0 Pulse 18 B/P (MAP) 120/0 (40) Pulse Ox 96 O2 Delivery Room Air Blood Pressure Mean: 40 Progress Progress Note : Progress Note Seen and evaluated. IV, labs, UA, blood hCG qualitative test ordered. LR 1 L bolus, fentanyl 50 mcg IV and Toradol 30 mg IV ordered. Monitor patient. 1024: Quantitative hCG level ordered due to positive test. Monitor patient. 1200: Rocephin 1 g IV given. Bedside ultrasound performed and there is question of gravid uterus although exam significantly limited by bowel gas. I did have a long conversation with her regarding addiction treatment services including [facility] and the need for follow-up OB care. Quantitative hCG is 15,000. She does need an ultrasound and this was discussed with her as well. I did discuss the case with Dr. Rob. She will assist in setting up OB follow-up as well as with addiction treatment services which the patient is very appreciative of. I did give hydrocodone 5/325 1 tab p.o. now and she will continue outpatient treatment for pain with Tylenol/acetaminophen. Discharged home with return precautions. Patient verbalized understanding of instructions and agreement with plan. Departure Impression Primary Impression: Urinary tract infection Qualified Codes: N30.00 - Acute cystitis without hematuria Additional Impressions: Left lower quadrant abdominal pain during Methamphetamine abuse Disposition: HOME, SELF-CARE Condition: Stable Departure-Patient Inst. Decision time for Depature: 12:05 Referrals: NO,LOCAL PHYSICIAN (PCP/Family) Primary Care Physician Patient Instructions: Severe Abdominal Pain, Adult (DC), Ectopic (DC) Add. Discharge Instructions: All discharge instructions reviewed with patient and/or family. Voiced understanding. It is very important that you follow-up for recheck and further evaluation and for further OB evaluation including ultrasound to verify placement. You do have a urinary tract infection and you will need to continue treatment as prescribed. [facility] should call you tomorrow at the phone number you gave for follow-up with OB care as well as referral to addiction treatment services. Return for worse pain, vaginal bleeding, weakness, vomiting or other concerns as needed. You may take Tylenol/acetaminophen 650 mg every 6 hours as needed for pain. Drink plenty of fluids. Scripts Cephalexin (Cephalexin) 500 Mg Tablet 500 MG PO BID, #10 TAB 0 Refills Prov: CECILIA ALANIS MD 07/23/20 Copy Copies To 1: NYDIA ROB MD, TIMOTHY D MD Jul 23, 2020 10:35
[2020-07-23 10:39] LABS: AMPHETAMINE SCREEN, URINE POSITIVE (NEGATIVE); BARBITURATE SCREEN URINE NEGATIVE (NEGATIVE); BENZODIAZEPINES SCREEN URINE NEGATIVE (NEGATIVE); CANNABINOID SCREEN, URINE POSITIVE (NEGATIVE); COCAINE SCREEN URINE NEGATIVE (NEGATIVE); METHADONE STAT NEGATIVE (NEGATIVE); METHAMPHETAMINE SCREEN URINE S POSITIVE (NEGATIVE); OPIATE SCREEN URINE NEGATIVE (NEGATIVE); OXYCODONE STAT NEGATIVE (NEGATIVE); PROPOXYPHENE STAT NEGATIVE (NEGATIVE); TRICYCLIC ANTIDEPRESSANTS SCRE NEGATIVE (NEGATIVE)
--- NOTE | 2020-07-23 10:39 | NUR ---
TO ROOM PAIN IMPROVED FLUIDS CON'T TO INFUSE
[2020-07-23] MEDS ORDERED: cefTRIAXone FOR IV USE 1,000 MG in WATER (STERILE) FOR INJECTION 10 ML IV STA (11:21)
[2020-07-23] MEDS ORDERED: HYDROcodone/APAP 5 MG/325 MG (LORTAB) TAB PO ONE (12:00)
[2020-07-23] MEDS ORDERED: CEPH500T PO (12:08)
[2020-07-23 12:16] VITALS: BP 124/81
--- NOTE | 2020-07-23 12:16 | NUR ---
ON DISCHARGE SHE REPORTS THAT BOYFRIEND HER OUT OF THE WAY YESTERDAY ASKED IF HE HAD EVER DONE ANYTHING LIKE THIS BEFORE SHE SAID YES. ASKED IF SHE WANTED TO MAKE A POLICE REPORT SHE DECLINED. WHEN ASKED IF SHE FELT SAFE GOING HOME SHE SAID YES. TALKED TO HER ABOUT GETTING OF HER HER SITUATION WITH DRUGS AND HER BOYFRIEND
== END 2020-07-23 12:16 | disposition home or self-care (01) ==
LOC: EDUNIT# 09:47 → ER 09:49
DX: N39.0 Urinary tract infection, site not specified (principal); R10.32 Left lower quadrant pain; F15.10 Other stimulant abuse, uncomplicated; F17.210 Nicotine dependence, cigarettes, uncomplicated; Z82.49 Family history of ischemic heart disease and other diseases of the circulatory system; Z83.3 Family history of diabetes mellitus
CPT/HCPCS: 36415; 80053; 80306; 81000; 84702; 84703; 85025; 86141; 87077; 87088

== ENCOUNTER 2020-07-25 22:26 | Emergency (ER) | payer SELFPAY ==
[~2020-07-25] VITALS: Ht 162.5 cm; Wt 58.9 kg
[~2020-07-25 22:26] MED LIST changes: +CEPH500T PO
[2020-07-25 23:06] LABS: BILIRUBIN,URINE NEGATIVE (NEGATIVE); CLARITY,URINE TURBID; COLOR,URINE YELLOW; GLUCOSE, URINE (UA) NEGATIVE (NEGATIVE); KETONES,URINE NEGATIVE (NEGATIVE); LEUKOCYTE ESTERASE ,URINE 3+ (NEGATIVE); NITRITE,URINE NEGATIVE (NEGATIVE); PROTEIN,URINE 1+ (NEGATIVE)
[2020-07-25 23:20] LABS: EOSINOPHILS # (AUTO) 0.4 10^3/uL (0.0-0.3); EOSINOPHILS % (AUTO) 3 % (0-10)
[2020-07-25 23:22] LABS: BACTERIA,URINE MODERATE /HPF; WBC,URINE >100 /HPF
[2020-07-25 23:22] LABS: BASOPHILS # (AUTO) 0.1 10^3/uL (0.0-0.1); BASOPHILS % (AUTO) 0 % (0-10); HEMATOCRIT 36 % (35-52); HEMOGLOBIN 11.6 g/dL (11.5-16.0); LYMPHOCYTES # (AUTO) 0.8 10^3/uL (1.0-4.0); LYMPHOCYTES % (AUTO) 7 % (12-44); MEAN CORPUSCULAR HEMOGLOBIN 27 pg (25-34); MEAN CORPUSCULAR HGB CONC 32 g/dL (32-36); MEAN CORPUSCULAR VOLUME 84 fL (80-99); MEAN PLATELET VOLUME 11.6 fL (9.0-12.2); MONOCYTES # (AUTO) 0.4 10^3/uL (0.0-1.0); MONOCYTES % (AUTO) 4 % (0-12); NEUTROPHILS # (AUTO) 9.5 10^3/uL (1.8-7.8); NEUTROPHILS % (AUTO) 85 % (42-75); PLATELET COUNT 112 10^3/uL (130-400); WHITE BLOOD COUNT 11.2 10^3/uL (4.3-11.0)
[2020-07-25 23:24] LABS: ALBUMIN 3.2 GM/DL (3.2-4.5); CHLORIDE 103 MMOL/L (98-107); POTASSIUM 3.5 MMOL/L (3.6-5.0); SODIUM 136 MMOL/L (135-145)
[2020-07-25 23:26] LABS: CALCIUM 8.2 MG/DL (8.5-10.1)
[2020-07-25 23:27] LABS: GLUCOSE 84 MG/DL (70-105); TOTAL PROTEIN 6.4 GM/DL (6.4-8.2)
[2020-07-25 23:28] LABS: CARBON DIOXIDE 20 MMOL/L (21-32)
[2020-07-25 23:29] LABS: BILIRUBIN,TOTAL 0.7 MG/DL (0.1-1.0)
[2020-07-25 23:30] LABS: ALKALINE PHOSPHATASE 109 U/L (40-136)
[2020-07-25 23:31] LABS: CREATININE SERUM 1.03 MG/DL (0.60-1.30); GFR ESTIMATED > 60
[2020-07-25 23:32] LABS: BUN/CREATININE RATIO 11
[2020-07-25] MEDS ORDERED: NS IV 1000 ML 1,000 ML IV ONE (23:32)
[2020-07-25 23:33] LABS: ALANINE AMINOTRANSFERASE 47 U/L (0-55)
[2020-07-25 23:43] LABS: EOSINOPHILS % (MANUAL) 4 %; LYMPHOCYTES % (MANUAL) 3 %; MONOCYTES % (MANUAL) 4 %; NEUTROPHILS % (MANUAL) 89 %
[2020-07-25 23:44] LABS: RBC MORPH NORMAL
[2020-07-25] MEDS ORDERED: cefTRIAXone FOR IV USE 1,000 MG in WATER (STERILE) FOR INJECTION 10 ML IV ONE (23:45)
[2020-07-26] MEDS ORDERED: polyethylene glycoL POWDER 17 GM (MIRALAX) PACK PO ONE
--- NOTE | 2020-07-26 00:09 | ED Abdominal Pain ---
General Chief Complaint: Abdominal/GI Problems Stated Complaint: STOMACH & SIDE PAIN Nursing Triage Note: TO ED VIA POV AND AMBULATORY TO ROOM 5 WITH C/O LEFT SIDE ABD AND FLANK PAIN. F/U WITH [facility] TODAY, BUT MISSED AFTERNOON ULTRASOUND APPT. IT HAS BEEN RESCHEDULED FOR THIS COMING FRIDAY, BUT PT STATES "THATS TOO LONG I CAN'T WAIT TIL THEN WITH THIS PAIN." HAS BEEN TAKING RX ANTIBX PRESCRIBED IN ER FOR UTI FROM 07/23. Sepsis Screen: No Definite Risk Source of Information: Patient Exam Limitations: No Limitations History of Present Illness Date Seen by Provider: Jul 26, 2020 Time Seen by Provider: 22:34 Initial Comments This 24-year-old young lady presents to the emergency room at approximately 6 weeks gestational age complaining of left flank pain. She was seen here on the and diagnosed with urinary tract infection. Bedside ultrasound at that time was suspicious for intrauterine but bedside ultrasound was obscured by bowel gas. Patient was treated with Rocephin and prescribed Keflex. She then followed up at [facility] and had some lab work done. She was supposed to return in the afternoon for an ultrasound but slept through that appointment as she has been very fatigued recently. She denies any fever, shortness of breath, vomiting, diarrhea, or other symptoms of acute infectious illness. She describes some white discharge with a little bit of odor but no vaginal pain or suprapubic pain. She is sexually active. She has not been sexually active since her prior ER visit. Patient does have recent history of methamphetamine and marijuana use. She denies any use since her last ER visit. She is a little bit nauseated but has not vomited. She denies any blood in her urine or any history of ureteral stones. Allergies and Home Medications Allergies Coded Allergies: No Known Drug Allergies (Unverified , 08/24/19) Home Medications Amoxicillin 500 Mg Capsule, 500 MG PO TID Prescribed by: CECILIA ALANIS on 08/24/19 0151 Cephalexin 500 Mg Tablet, 500 MG PO BID Prescribed by: CECILIA ALANIS on 07/23/20 1208 Polyethylene Glycol 3350 17 Gm Powd.pack, 17 GM PO BID PRN for CONSTIPATION-1ST LINE Mix each packet in 8-12 oz clear liquid. Combine with high fiber diet and plenty of clear liquids Prescribed by: ERIC DHILLON on 07/26/20 0014 Patient Home Medication List Home Medication List Reviewed: Yes Review of Systems Review of Systems Constitutional: no symptoms reported EENTM: No Symptoms Reported Respiratory: No Symptoms Reported Cardiovascular: No Symptoms Reported Gastrointestinal: See HPI Genitourinary: See HPI Musculoskeletal: no symptoms reported Skin: no symptoms reported Psychiatric/Neurological: No Symptoms Reported Endocrine: No Symptoms Reported Hematologic/Lymphatic: No Symptoms Reported Past Adnxugl-Uxslxf-Olbwji Hx Past Med/Social Hx: Reviewed Nursing Past Med/Soc Hx Patient Social History Alcohol Use: Denies Use Recreational Drug Use: Yes Drug of Choice: THC, IV methamphetamines Type Used: Cigarettes Recent Foreign Travel: No Contact w/Someone Who Travel: No Recent Infectious Disease Expo: No Recent Hopitalizations: No Physical Abuse: No Sexual Abuse: No Mistreated: No Fear: No Immunizations Up To Date Tetanus Booster (TDap): Unknown Seasonal Allergies Seasonal Allergies: Yes Past Medical History Surgeries: Yes (WIDOM TEETH) Section Respiratory: No Cardiac: No Neurological: No : Yes Last Menstrual Period: Jun 24, 2020 Reproductive Disorders: No Genitourinary: No Gastrointestinal: No Musculoskeletal: No Endocrine: No HEENT: No Cancer: No Psychosocial: No Integumentary: No Blood Disorders: No Family Medical History Diabetes mellitus GRANDFATHER, PATERNAL (Type II) Myocardial infarction GRANDFATHER, PATERNAL No Pertinent Family Hx Physical Exam Vital Signs Vital Signs - First Documented 07/25/20 07/26/20 22:40 00:19 Temp 36.1 Pulse 114 Resp 16 B/P (MAP) 117/76 (90) Pulse Ox 100 O2 Delivery Room Air Capillary Refill : Less Than 3 Seconds Height/Weight/BMI Height: 5'4.00" Weight: 150lbs. 0.0oz. 68.794985oe; 22.00 BMI Method:Stated General Appearance: WD/WN, no apparent distress, thin HEENT: PERRL/EOMI, normal ENT inspection Neck: normal inspection Respiratory: lungs clear, normal breath sounds, no respiratory distress, no accessory muscle use Cardiovascular: no edema, no murmur, tachycardia Gastrointestinal: normal bowel sounds, soft, tenderness (Left flank, left mid l ateral abdomen. No lower abdominal tenderness.), other (Bedside transabdominal ultrasound did not provide good views of the uterus. Bladder was fairly empty at the time and there was bowel gas. Gestation was not seen.) Extremities: non-tender, normal inspection, no pedal edema Pelvic: normal external exam, no cerv. motion tender, discharge (Some dark greenish-brown thick discharge in the vaginal canal. 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, no motor/sensory deficits, alert, normal mood/affect, oriented x 3 Skin: normal color, warm/dry Progress/Results/Core Measures Results/Orders Lab Results Laboratory Tests Test 07/25/20 22:55 07/25/20 23:00 07/25/20 23:20 Range/Units Urine Color YELLOW Urine Clarity TURBID Urine pH 7.0 5-9 Urine Specific Mode 1.010 L 1.016-1.022 Urine Protein 1+ H NEGATIVE Urine Glucose (UA) NEGATIVE NEGATIVE Urine Ketones NEGATIVE NEGATIVE Urine Nitrite NEGATIVE NEGATIVE Urine Bilirubin NEGATIVE NEGATIVE Urine Urobilinogen 1.0 < = 1.0 MG/DL Urine Leukocyte Esterase 3+ H NEGATIVE Urine RBC (Auto) 3+ H NEGATIVE Urine RBC 10-25 H /HPF Urine WBC >100 H /HPF Urine Crystals NONE /LPF Urine Bacteria MODERATE H /HPF Urine Casts NONE /LPF Urine Mucus NEGATIVE /LPF Urine Culture Indicated YES White Blood Count 11.2 H 4.3-11.0 10^3/uL Red Blood Count 4.25 3.80-5.11 10^6/uL Hemoglobin 11.6 11.5-16.0 g/dL Hematocrit 36 35-52 % Mean Corpuscular Volume 84 80-99 fL Mean Corpuscular Hemoglobin 27 25-34 pg Mean Corpuscular Hemoglobin Concent 32 32-36 g/dL Red Cell Distribution Width 13.3 10.0-14.5 % Platelet Count 112 L 130-400 10^3/uL Mean Platelet Volume 11.6 9.0-12.2 fL Immature Granulocyte % (Auto) 1 % Neutrophils (%) (Auto) 85 H 42-75 % Lymphocytes (%) (Auto) 7 L 12-44 % Monocytes (%) (Auto) 4 0-12 % Eosinophils (%) (Auto) 3 0-10 % Basophils (%) (Auto) 0 0-10 % Neutrophils # (Auto) 9.5 H 1.8-7.8 10^3/uL Lymphocytes # (Auto) 0.8 L 1.0-4.0 10^3/uL Monocytes # (Auto) 0.4 0.0-1.0 10^3/uL Eosinophils # (Auto) 0.4 H 0.0-0.3 10^3/uL Basophils # (Auto) 0.1 0.0-0.1 10^3/uL Immature Granulocyte # (Auto) 0.1 0.0-0.1 10^3/uL Neutrophils % (Manual) 89 % Lymphocytes % (Manual) 3 % Monocytes % (Manual) 4 % Eosinophils % (Manual) 4 % Blood Morphology Comment NORMAL Sodium Level 136 135-145 MMOL/L Potassium Level 3.5 L 3.6-5.0 MMOL/L Chloride Level 103 98-107 MMOL/L Carbon Dioxide Level 20 L 21-32 MMOL/L Anion Gap 13 5-14 MMOL/L Blood Urea Nitrogen 11 7-18 MG/DL Creatinine 1.03 0.60-1.30 MG/DL Estimat Glomerular Filtration Rate > 60 BUN/Creatinine Ratio 11 Glucose Level 84 70-105 MG/DL Calcium Level 8.2 L 8.5-10.1 MG/DL Corrected Calcium 8.8 8.5-10.1 MG/DL Total Bilirubin 0.7 0.1-1.0 MG/DL Aspartate Amino Transf (AST/SGOT) 12 5-34 U/L Alanine Aminotransferase (ALT/SGPT) 47 0-55 U/L Alkaline Phosphatase 109 40-136 U/L C-Reactive Protein High Sensitivity 23.89 H 0.00-0.50 MG/DL Total Protein 6.4 6.4-8.2 GM/DL Albumin 3.2 3.2-4.5 GM/DL Human Chorionic Gonadotropin, Quant 90645 H <5 MIU/ML My Orders Orders - ERIC MARTE MD Cbc With Automated Diff (07/25/20 22:34) Comprehensive Metabolic Panel (07/25/20 22:34) Hs C Reactive Protein (07/25/20 22:34) Hcg,Quantitative (07/25/20 22:34) Wet Prep (07/25/20 22:56) Neisseria Gonorrhea Swab (07/25/20 22:56) Genital Culture (07/25/20 22:56) Xiomara Prep (07/25/20 22:56) Chlamydia Trachomatis Swab (07/25/20 22:56) Ua Culture If Indicated (07/25/20 22:56) Urine Culture (07/25/20 22:55) Manual Differential (07/25/20 23:00) Ceftriaxone For Iv Use (Rocephin For I (07/25/20 23:45) Ed Iv/Invasive Line Start (07/25/20 23:32) Ns Iv 1000 Ml (Sodium Chloride 0.9%) (07/25/20 23:32) Medications Given in ED Current Medications Medications Dose Ordered Sig/Nam Route Start Time Stop Time Status Last Admin Dose Admin Ceftriaxone Sodium 1000 mg/ Sterile Water 10 ml @ 200 mls/hr ONCE ONCE IV 07/25/20 23:45 07/25/20 23:47 DC 07/25/20 23:42 200 MLS/HR Sodium Chloride 1,000 ml @ 0 mls/hr Q0M ONCE IV 07/25/20 23:32 07/25/20 23:34 DC 07/25/20 23:42 999 MLS/HR Vital Signs/I&O 07/25/20 07/26/20 22:40 00:19 Temp 36.1 36.1 Pulse 114 102 Resp 16 16 B/P (MAP) 117/76 (90) 108/74 (90) Pulse Ox 100 O2 Delivery Room Air Room Air Blood Pressure Mean: 90 Progress Progress Note : Progress Note Patient has persistent evidence of pyuria on urinalysis. For this reason a repeat dose of Rocephin was administered along with a liter of IV fluid. I suspect based on the location of her pain that she has either constipation or a ureteral stone. Ureteral stone would be supported by the microscopic hematuria seen on urinalysis today. Ultrasound is not available in the ER at this time. Bedside ultrasound did not provide good views of the uterus. Therefore, an ultrasound order form was given to her for ultrasonography in the morning. Since constipation was also in the differential, patient was given a packet of MiraLAX to try. If she produces a good bowel movement that relieves her pain, she can just have the previously scheduled ultrasound at [facility] on . hCG level was obtained and was increasing. Departure Impression Primary Impression: Left flank pain Additional Impressions: Urinary tract infection Qualified Codes: N39.0 - Urinary tract infection, site not specified; R31.9 - Hematuria, unspecified First trimester Disposition: 01 HOME, SELF-CARE Condition: Improved Departure-Patient Inst. Decision time for Depature: 00:08 Referrals: NO,LOCAL PHYSICIAN (PCP/Family) Primary Care Physician Patient Instructions: Severe Abdominal Pain, Urinary Tract Infection, Adult (DC) Add. Discharge Instructions: Use the MiraLAX laxative dissolved in 8 to 12 ounces of clear liquids tonight. If you do not produce a bowel movement and pain persists in the morning, return for ultrasound. Present the ultrasound order form to the registration desk at 7:30 this morning. Consume only clear liquids between now and then. If you do not get this ultrasound at the hospital, follow through with your ultrasound at the [facility] clinic. Follow-up with them as soon as possible. Return to the emergency room if you have worsening symptoms. You may take Tylenol (acetaminophen) up to 1000 mg every 6 hours as needed for pain. Complete your antibiotics as prescribed. All discharge instructions reviewed with patient and/or family. Voiced understanding. Scripts Polyethylene Glycol 3350 (Miralax) 17 Gm Powd.pack 17 GM PO BID PRN for CONSTIPATION-1ST LINE, #30 EACH Mix each packet in 8-12 oz clear liquid. Combine with high fiber diet and plenty of clear liquids Prov: ERIC MARTE MD 07/26/20 Copy Copies To 1: NASREEN DALY JOSHUA T MD Jul 26, 2020 00:09
[2020-07-26] MEDS ORDERED: POLY17PO6 PO (00:14)
[2020-07-26 00:19] VITALS: BP 108/74
--- NOTE | 2020-07-26 00:19 | NUR ---
OUTPATIENT ORDER FOR US GIVEN TO PT AND COPIES TO ER REGISTRATION, SENT TO OP REGISTRATION, AND COPY TO CHART. MIRALAX 17G SAMPLE PACKET GIVEN TO PT.
== END 2020-07-26 00:19 | disposition home or self-care (01) ==
LOC: EDUNIT# 22:26 → ER 22:28
DX: O23.41 Unspecified infection of urinary tract in pregnancy, first trimester (principal); Z3A.01 Less than 8 weeks gestation of pregnancy
CPT/HCPCS: 36415; 80053; 81000; 84702; 85007; 85027; 86141; 87070; 87077; 87088; 87205; 87210; 87220; 87491; 87591

== ENCOUNTER 2021-02-04 20:31 | Outpatient (CLI) | payer MEDICAID ==
[~2021-02-04] VITALS: Ht 162.6 cm; Wt 74.9 kg
[~2021-02-04 20:31] MED LIST changes: -CLIN150C17 PO; +CLIN150C18 PO; +POLY17PO6 PO
[2021-02-04 20:45] VITALS: BP 132/80
[2021-02-04 20:48] VITALS: BP 132/80
[2021-02-04 20:51] LABS: BILIRUBIN,URINE NEGATIVE (NEGATIVE); CLARITY,URINE CLOUDY; COLOR,URINE YELLOW; GLUCOSE, URINE (UA) NEGATIVE (NEGATIVE); KETONES,URINE NEGATIVE (NEGATIVE); LEUKOCYTE ESTERASE ,URINE 3+ (NEGATIVE); NITRITE,URINE POSITIVE (NEGATIVE); PH,URINE 6.5 (5-9); PROTEIN,URINE 1+ (NEGATIVE)
[2021-02-04] MEDS ORDERED: PREN1TAB79 PO (20:57)
[2021-02-04 20:58] LABS: BACTERIA,URINE LARGE /HPF; SQUAMOUS EPITHELIAL CELL,UR 0-2 /HPF; WBC,URINE >100 /HPF
[2021-02-04] MEDS ORDERED: CEPHALEXIN 250 MG (KEFLEX) CAP PO ONE (21:15)
--- NOTE | 2021-02-05 07:47 | Physician Query-Final Dx ---
CINDY AMAYA 02/05/21 0747: Clinic Account Progress/Dx Physician Query: Please give diagnosis Please include # weeks gestation Date of Service Feb 04, 2021 at 20:31 PAMELA PRETTY MD 02/07/21 0734: Clinic Account Progress/Dx DIAGNOSIS: Diagnosis 1. IUP in 3rd trimester, non labor 2. UTI CINDY AMAYA Feb 05, 2021 07:47 PAMELA PRETTY MD Feb 07, 2021 07:34
== END 2021-02-04 21:27 ==
LOC: WSo 20:31 → LDRP 20:31 → WSo 21:27
PROVIDERS: ATTEND Family Medicine
DX: O26.899 Other specified pregnancy related conditions, unspecified trimester (principal); Z3A.00 Weeks of gestation of pregnancy not specified
CPT/HCPCS: 81000; 87077; 87088; 99212

== ENCOUNTER 2021-03-13 05:33 | Outpatient (CLI) | payer MEDICAID ==
[~2021-03-13] VITALS: Ht 162.6 cm; Wt 76.2 kg
[~2021-03-13 05:33] MED LIST changes: +PREN1TAB79 PO
[2021-03-13] MEDS ORDERED: NITR-65 PO (10:58)
== END 2021-03-13 11:11 | disposition home or self-care (01) ==
LOC: PREOP 05:33
PROVIDERS: ATTEND Obstetrics & Gynecology
DX: Z01.818 Encounter for other preprocedural examination (principal)

== ENCOUNTER 2021-03-20 03:02 | Inpatient (IN) | payer MEDICAID ==
--- NOTE | 2021-03-19 20:24 | History & Physical-OB ---
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 Sens macrodantin. Previous UTI but had not completed antibiotics Has been treated multiple times for UTI Previous CS due to intolerance to labor Induction at 41 4/7 weeks. nonfavorable cervix Allergies and Home Medications Allergies Coded Allergies: No Known Drug Allergies (Unverified , 02/04/21) Home Medications Nitrofurantoin Monohyd/M-Cryst 100 Mg Capsule, 1 TAB PO Q6H, (Reported) Vit W-Ca,Fe,FA(<1 mg) 1 Each Tablet, 1 EACH PO DAILY, (Reported) Patient Home Medication List Home Medication List Reviewed: Yes OB - History Hx of Present Ultrasounds: Normal mid trimester US Obstetrical Complications: None Medical Complications: None Information Induced Hypertension: No Maternal Gestational Diabetes: No Hemorrhage: No Obstetrical History Hx : 2 Hx Para: 1 Hx # Term Pregnancies: 1 Hx # Pregnancies: 0 Number of Living Children: 1 Hx Multiple Gestation: No Hx Ectopic : No Hx Stillbirth: No Hx Complication: No Hx Induced Hypertens: No Hx Maternal Gestational Diabet: No Hx Hemorrhage: No Delivery History Hx Section: Yes Patient Past Medical History n/a Social History/Family History Alcohol Use: Denies Use Recreational Drug Use: Yes (previous history; last usage 07/20/2020) Smoking Cessation: Current every day smoker 2nd Hand Smoke Exposure: Yes Immunizations Hepatitis A: No Tetanus Booster (TDap): Less than 5yrs (01/2021) Rubella: immune RPR/VDRL: Negative GBS Status: Negative HBsAG: Negative OB - Admission Exam Physical Exam HEENT: NCAT Heart: Rhythm Normal Lungs: Clear Abdomen: Gravid Extremities: Normal Reflexes: Normal Cervical Dilatation: other (not examined) Heart Rate: 140's OB - Assessment/Plan/Diagnosis Assessment Assessment: section Admission Dx 1. at 39 4/7 week gestation 2. Previous section Plan - repeat section Risk bleeding, infection, injury to bowel, bladder and ureter. DVT/PE, NPO aftr midnight. Prophylactic antibiotics and SCDs Admission Status: Inpatient Order (span 2 midnights) Reason for Inpatient Admission: section Plan Plan: Section MEGAN CASEY DO Mar 19, 2021 20:24
[2021-03-20] VITALS (12 sets, daily range): BP systolic 94–126; BP diastolic 56–85
[~2021-03-20] VITALS: Ht 162.6 cm; Wt 76.0 kg
[~2021-03-20 03:02] MED LIST changes: +NITR-65 PO
[2021-03-20] MEDS ORDERED: ceFAZolin 2 GM IV Premixed 50 ML IV ONE (06:15)
[2021-03-20] MEDS ORDERED: CITRIC ACID/SOB CIT (BICITRA) 30 ML UDC PO ONE (06:15)
[2021-03-20] MEDS ORDERED: METOCLOPRAMIDE INJ 10 MG/2 ML (REGLAN) IV ONE (06:15)
[2021-03-20] MEDS ORDERED: FAMOTIDINE 20MG/2ML IV (PEPCID) IV ONE (06:15)
[2021-03-20] MEDS ORDERED: LACTATED RINGERS 1,000 ML IV SCH ×2 (06:15)
[2021-03-20] MEDS ORDERED: NITR-65 PO (06:17)
[2021-03-20 06:50] LABS: BILIRUBIN,URINE NEGATIVE (NEGATIVE); CLARITY,URINE CLOUDY; COLOR,URINE YELLOW; GLUCOSE, URINE (UA) NEGATIVE (NEGATIVE); KETONES,URINE NEGATIVE (NEGATIVE); LEUKOCYTE ESTERASE ,URINE 3+ (NEGATIVE); NITRITE,URINE NEGATIVE (NEGATIVE); PROTEIN,URINE NEGATIVE (NEGATIVE)
[2021-03-20 06:52] LABS: BASOPHILS # (AUTO) 0.1 10^3/uL (0.0-0.1); BASOPHILS % (AUTO) 0 % (0-10); EOSINOPHILS # (AUTO) 0.7 10^3/uL (0.0-0.3); EOSINOPHILS % (AUTO) 5 % (0-10); HEMATOCRIT 34 % (35-52); HEMOGLOBIN 11.1 g/dL (11.5-16.0); LYMPHOCYTES # (AUTO) 2.7 10^3/uL (1.0-4.0); LYMPHOCYTES % (AUTO) 18 % (12-44); MEAN CORPUSCULAR HEMOGLOBIN 27 pg (25-34); MEAN CORPUSCULAR HGB CONC 32 g/dL (32-36); MEAN CORPUSCULAR VOLUME 84 fL (80-99); MEAN PLATELET VOLUME 12.6 fL (9.0-12.2); MONOCYTES # (AUTO) 0.9 10^3/uL (0.0-1.0); MONOCYTES % (AUTO) 6 % (0-12); NEUTROPHILS # (AUTO) 10.4 10^3/uL (1.8-7.8); NEUTROPHILS % (AUTO) 70 % (42-75); PLATELET COUNT 238 10^3/uL (130-400); WHITE BLOOD COUNT 14.8 10^3/uL (4.3-11.0)
[2021-03-20 07:27] LABS: AMORPHOUS SEDIMENT,UR LARGE AMOR PHOSPHATE /LPF; BACTERIA,URINE MODERATE /HPF; RBC,URINE 25-50 /HPF; WBC,URINE 50-100 /HPF
--- NOTE | 2021-03-20 07:29 | Progress Note-Pre Operative ---
Pre-Operative Progress Note H&P Reviewed The H&P was reviewed, patient examined and no changes noted. Date Seen by Provider: Mar 20, 2021 Time Seen by Provider: 07:15 Date H&P Reviewed: Mar 20, 2021 Time H&P Reviewed: 07:00 Pre-Operative Diagnosis: previous section MEGAN CASEY DO Mar 20, 2021 07:29
[2021-03-20 07:34] LABS: BAND NEUTROPHILS 2 %; EOSINOPHILS % (MANUAL) 6 %; LYMPHOCYTES % (MANUAL) 25 %; MONOCYTES % (MANUAL) 4 %; NEUTROPHILS % (MANUAL) 63 %; RBC MORPH NORMAL
--- NOTE | 2021-03-20 08:11 | Cesarean Section Operative ---
Procedure Procedure Note Pre-operative Diagnosis: Lorie Rothman is a 25 /Para 2 / 1, Gestational Age 39 4/7 weeks with history of previous section Post-operative Diagnosis: same Procedure: repeat low transverse section Physician: MEGAN CASEY Estimated blood loss: 300 mL Disposition: stable Findings: Viable female , Apgars 8/9, weight 6#13 ounces, intact placenta, 3vc, normal appearing uterus, tubes, and ovaries. Indications:Lorie Rothman is a 25 /Para 2 / 1,Gestational Age 39 4/7 weeks with history of previous section Procedure Details: The patient was seen in pre-op and the procedure was discussed with the patient in full, including the risks, benefits, and alternatives. All questions were answered. The patient was taken to the operating room and a time out was performed, verifying patient and procedure. After spinal anesthesia was placed by our anesthesia colleagues, the patient was placed in the dorsal supine with leftward tilt for uterine displacement.~ Her abdomen was then prepped and draped in the typical sterile fashion. A Pfannenstiel skin incision was made using a scalpel and carried down through the underlying fascia. The fascia was incised in the midline and tented up using Sally clamps. On both the inferior and superior fascia side the rectus muscle was dissected off bluntly and sharply using Anglin scissors. The peritoneum was identified and entered bluntly in the midline. This was then stretched laterally using manual strength. After entering the abdominal cavity and confirming lack of intraperitoneal adhesions, a large Gio retractor was placed and the lower uterine segment was visualized. A scalpel was utilized to make a low transverse uterine incision. The infant's head was grasped and brought to the level of the incision. Fundal pressure was applied and infant was delivered without difficu lty. Mouth and nares were suctioned with bulb suction. After the umbilical cord was clamped and cut, the infant was handed off to the pediatric staff. A sample of cord blood was then obtained. The placenta was delivered intact via uterine massage. The uterus was cleared of all clots and debris. The uterine incision was closed using 0 Vicryl in a running locked fashion. A second imbricated layer was placed using 0 Vicryl in a running fashion as well. bilateral tubes and ovaries appeared normal. The gutters were cleared of all clots and debris. A final check of the uterine incision showed it to be hemostatic. The peritoneum was closed using 3-0 Vicryl in a running fashion. The fascia was closed with 0 PDS in a running fashion. The subcutaneous space was hemostatic, and irrigated. The subcutaneous space was closed with 0 Plain in several single interrupted stitches. The skin was then c losed using 4-0 Monocryl in a running subcuticular fashion. The skin edges were reapproximated together and were hemostatic. A pressure dressing was applied. All sponge, lap and needle counts were correct at the end of the procedure per nursing. Vitals - Labs Vital Signs - I&O Vital Signs Date Time Temp Pulse Resp B/P (MAP) Pulse Ox O2 Delivery O2 Flow Rate FiO2 03/20/21 06:45 36.1 85 18 99 Room Air 03/20/21 06:23 36.1 85 18 124/79 (94) 99 Room Air Labs Laboratory Tests 03/20/21 06:15: Urine Color YELLOW, Urine Clarity CLOUDY, Urine pH 7.0, Urine Specific [place] 1.015L, Urine Protein NEGATIVE, Urine Glucose (UA) NEGATIVE, Urine Ketones NEGATIVE, Urine Nitrite NEGATIVE, Urine Bilirubin NEGATIVE, Urine Urobilinogen 0.2, Urine Leukocyte Esterase 3+H, Urine RBC (Auto) 3+H, Urine RBC 25-50H, Urine WBC 50-100H, Urine Squamous Epithelial Cells 10-25H, Urine Crystals PRESENTH, Urine Amorphous Sediment LARGE NARESH PHOSPHATEH, Urine Bacteria MODERATEH, Urine Casts NONE, Urine Mucus NEGATIVE, Urine Culture Indicated YES 03/20/21 06:38: White Blood Count 14.8H, Red Blood Count 4.10, Hemoglobin 11.1L, Hematocrit 34L, Mean Corpuscular Volume 84, Mean Corpuscular Hemoglobin 27, Mean Corpuscular Hemoglobin Concent 32, Red Cell Distribution Width 15.4H, Platelet Count 238, Mean Platelet Volume 12.6H, Immature Granulocyte % (Auto) 1, Neutrophils (%) (Auto) 70, Lymphocytes (%) (Auto) 18, Monocytes (%) (Auto) 6, Eosinophils (%) (Auto) 5, Basophils (%) (Auto) 0, Neutrophils # (Auto) 10.4H, Lymphocytes # (Auto) 2.7, Monocytes # (Auto) 0.9, Eosinophils # (Auto) 0.7H, Basophils # (Auto) 0.1, Immature Granulocyte # (Auto) 0.1, Neutrophils % (Manual) 63, Lymphocytes % (Manual) 25, Monocytes % (Manual) 4, Eosinophils % (Manual) 6, Ban d Neutrophils 2, Blood Morphology Comment NORMAL MEGAN CASEY DO Mar 20, 2021 08:11
[2021-03-20] MEDS ORDERED: MEASLES,MUMPS,RUBELLA 1 EA INJ SC SCH (08:15)
[2021-03-20] MEDS ORDERED: morphine INJ 4 MG/ML 1 ML (VIAL/SYRINGE) IVP PRN (08:15)
[2021-03-20] MEDS ORDERED: TETANUS,DIPTH,PERTUSS P/F (BOOSTRIX) 0.5 ML VIAL IM SCH (08:15)
[2021-03-20] MEDS: DOCUSATE SODIUM 100 MG (COLACE) CAP PO SCH ×2 (09:44→22:30)
[2021-03-20] MEDS: KETOROLAC 30 MG/ML VIAL IV SCH ×2 (09:44→16:03)
[2021-03-20] MEDS: OXYTOCIN PRE-MIX DRIP 500 ML IV SCH ×2 (09:46→11:24)
[2021-03-20] MEDS ORDERED: ACETAMINOPHEN 500 MG TAB (TYLENOL) ONE (11:23)
[2021-03-20] MEDS: ACETAMINOPHEN 500 MG TAB (TYLENOL) PO SCH (11:24)
[2021-03-20] MEDS ORDERED: CATHETER FLUSH 10 ML SYR IV SCH (14:00)
[2021-03-20] MEDS ORDERED: IBUPROFEN 600 MG (MOTRIN) TAB PO ONE (22:26)
[2021-03-20] MEDS: IBUPROFEN 600 MG (MOTRIN) TAB PO SCH (22:30)
[2021-03-21 03:30] VITALS: BP 123/63
[2021-03-21] MEDS ORDERED: IBUPROFEN 600 MG (MOTRIN) TAB PO ONE ×2 (04:30→09:26)
[2021-03-21] MEDS: IBUPROFEN 600 MG (MOTRIN) TAB PO SCH ×4 (04:32→22:23)
[2021-03-21 06:27] LABS: BASOPHILS # (AUTO) 0.1 10^3/uL (0.0-0.1); BASOPHILS % (AUTO) 0 % (0-10); EOSINOPHILS # (AUTO) 0.6 10^3/uL (0.0-0.3); EOSINOPHILS % (AUTO) 3 % (0-10); HEMATOCRIT 30 % (35-52); HEMOGLOBIN 9.6 g/dL (11.5-16.0); LYMPHOCYTES # (AUTO) 2.7 10^3/uL (1.0-4.0); LYMPHOCYTES % (AUTO) 14 % (12-44); MEAN CORPUSCULAR HEMOGLOBIN 27 pg (25-34); MEAN CORPUSCULAR HGB CONC 32 g/dL (32-36); MEAN CORPUSCULAR VOLUME 84 fL (80-99); MEAN PLATELET VOLUME 12.4 fL (9.0-12.2); MONOCYTES % (AUTO) 5 % (0-12); NEUTROPHILS # (AUTO) 14.9 10^3/uL (1.8-7.8); NEUTROPHILS % (AUTO) 77 % (42-75); PLATELET COUNT 214 10^3/uL (130-400); WHITE BLOOD COUNT 19.4 10^3/uL (4.3-11.0)
[2021-03-21 07:00] LABS: BAND NEUTROPHILS 0 %; NEUTROPHILS % (MANUAL) 76 %
[2021-03-21 07:01] LABS: ANISOCYTOSIS SLIGHT; BASOPHILS % (MANUAL) 0 %; EOSINOPHILS % (MANUAL) 4 %; LYMPHOCYTES % (MANUAL) 16 %; MONOCYTES % (MANUAL) 4 %
--- NOTE | 2021-03-21 08:36 | Postpartum Progress Note ---
Post Op Post-operative Day #1 s/p RLTCS Subjective: Patient is without complaints. Ambulating, voiding after barnett removed. Tolerating a regular diet without nausea or vomiting. Normal lochia. Pain is well controlled with oral pain medications. Passing flatus. breast feeding. Objective: 03/20/21 03/21/21 22:30 03:30 Temp 37.6 36.7 Pulse 83 84 Resp 18 18 B/P (MAP) 98/56 (70) 123/63 (83) Pulse Ox 97 97 O2 Delivery Room Air Room Air Laboratory Tests Test 03/21/21 05:30 Range/Units White Blood Count 19.4 H 4.3-11.0 10^3/uL Red Blood Count 3.59 L 3.80-5.11 10^6/uL Hemoglobin 9.6 L 11.5-16.0 g/dL Hematocrit 30 L 35-52 % Mean Corpuscular Volume 84 80-99 fL Mean Corpuscular Hemoglobin 27 25-34 pg Mean Corpuscular Hemoglobin Concent 32 32-36 g/dL Red Cell Distribution Width 15.5 H 10.0-14.5 % Platelet Count 214 130-400 10^3/uL Mean Platelet Volume 12.4 H 9.0-12.2 fL Immature Granulocyte % (Auto) 1 % Neutrophils (%) (Auto) 77 H 42-75 % Lymphocytes (%) (Auto) 14 12-44 % Monocytes (%) (Auto) 5 0-12 % Eosinophils (%) (Auto) 3 0-10 % Basophils (%) (Auto) 0 0-10 % Neutrophils # (Auto) 14.9 H 1.8-7.8 10^3/uL Lymphocytes # (Auto) 2.7 1.0-4.0 10^3/uL Monocytes # (Auto) 1.0 0.0-1.0 10^3/uL Eosinophils # (Auto) 0.6 H 0.0-0.3 10^3/uL Basophils # (Auto) 0.1 0.0-0.1 10^3/uL Immature Granulocyte # (Auto) 0.1 0.0-0.1 10^3/uL Neutrophils % (Manual) 76 % Lymphocytes % (Manual) 16 % Monocytes % (Manual) 4 % Eosinophils % (Manual) 4 % Basophils % (Manual) 0 % Band Neutrophils 0 % Anisocytosis SLIGHT Physical Exam: General - Alert and oriented, no apparent distress Abdomen - Soft, appropriately tender to palpation, non-distended, fundus firm at umbilicus Incision - clean, dry and intact; no erythema or induration, no drainage Extremities - no edema, negative Ken's bilaterally [] Assessment: 1. post-operative day # 1, status post RLTCS. Recovering well, hemodynamically stable 2. Acute blood loss anemia Plan: Routine post-operative care. Encourage breast feeding. Encourage ambulation. VTE prophylaxis: SCDs. Ferrous sulfate supplementation. Plan for discharge tomorrow Vitals - Labs Vital Signs - I&O Vital Signs Date Time Temp Pulse Resp B/P (MAP) Pulse Ox O2 Delivery O2 Flow Rate FiO2 03/21/21 03:30 36.7 84 18 123/63 (83) 97 Room Air 03/20/21 22:30 37.6 83 18 98/56 (70) 97 Room Air 03/20/21 16:06 37.2 68 18 126/76 (93) 97 Room Air 03/20/21 12:50 36.8 72 18 114/65 (81) Room Air 03/20/21 10:00 36.5 68 18 123/67 (85) Room Air 03/20/21 09:23 36.1 20 113/85 (94) 100 Room Air 03/20/21 09:23 Room Air 03/20/21 09:08 Room Air 03/20/21 09:08 36.1 20 121/78 (92) 98 Room Air 03/20/21 08:53 36.0 20 118/75 (89) 100 Room Air 03/20/21 08:53 Room Air 03/20/21 08:38 Room Air 03/20/21 08:38 36.2 22 100/68 (79) 99 Room Air I & O 03/21/21 07:00 Intake Total 550 ml Output Total 375 ml Balance 175 ml Labs Laboratory Tests 03/21/21 05:30: White Blood Count 19.4H, Red Blood Count 3.59L, Hemoglobin 9.6L, Hematocrit 30L, Mean Corpuscular Volume 84, Mean Corpuscular Hemoglobin 27, Mean Corpuscular Hemoglobin Concent 32, Red Cell Distribution Width 15.5H, Platelet Count 214, Mean Platelet Volume 12.4H, Immature Granulocyte % (Auto) 1, Neutrophils (%) (Auto) 77H, Lymphocytes (%) (Auto) 14, Monocytes (%) (Auto) 5, Eosinophils (%) (Auto) 3, Basophils (%) (Auto) 0, Neutrophils # (Auto) 14.9H, Lymphocytes # (Auto) 2.7, Monocytes # (Auto) 1.0, Eosinophils # (Auto) 0.6H, Basophils # (Auto) 0.1, Immature Granulocyte # (Auto) 0.1, Neutrophils % (Manual) 76, Lymphocytes % (Manual) 16, Monocytes % (Manual) 4, Eosinophils % (Manual) 4, Basophils % (Manual) 0, Band Neutrophils 0, Anisocytosis SLIGHT Microbiology 03/20/21 MRSA Screen - Final, Complete MRSA not isolated MEGAN CASEY DO Mar 21, 2021 08:36
[2021-03-21 09:15] VITALS: BP 119/75
[2021-03-21] MEDS: DOCUSATE SODIUM 100 MG (COLACE) CAP PO SCH ×2 (09:33→22:23)
[2021-03-21] MEDS: ACETAMINOPHEN 500 MG TAB (TYLENOL) PO SCH ×3 (09:33→16:37)
--- NOTE | 2021-03-21 09:34 | Anesthesia-Regional Post-Op ---
Regional Patient Condition Mental Status: Alert, Oriented x3 Circulation: Same as Pre-Op Headache: Absent Sensation: Full Recovery Motor Block: Absent Post Op Complications Complications None Follow Up Care/Instructions Patient Instructions None needed. Anesthesia/Patient Condition Patient is doing well, no complaints, stable vital signs, no apparent adverse anesthesia problems. No complications reported per nursing. VAIBHAV EDMONDS CRNA Mar 21, 2021 09:34
[2021-03-21 12:30] VITALS: BP 113/66
[2021-03-21] MEDS ORDERED: OXC5T PO (13:22)
[2021-03-21] MEDS ORDERED: DCS100C PO (13:22)
[2021-03-21] MEDS ORDERED: IBUP-844 PO (13:22)
[2021-03-21] MEDS ORDERED: FERR325T24 PO (13:22)
[2021-03-21] MEDS ORDERED: ACET-93 PO (13:22)
--- NOTE | 2021-03-21 13:24 | Short Stay Summary ---
Discharge Summary Hospital Course Was the Problem List Reviewed?: Yes Final Diagnosis: previous section acute blood loss anemia Hospital Course Date of Admission: Mar 20, 2021 at 06:12 Admission Diagnosis : Family Physician/Provider: Yamilex Rob MD Date of Discharge: 03/21/21 Discharge Diagnosis: [ ] Hospital Course: [ ] Labs and Pending Lab Test: Laboratory Tests 03/21/21 05:30: White Blood Count 19.4H, Red Blood Count 3.59L, Hemoglobin 9.6L, Hematocrit 30L, Mean Corpuscular Volume 84, Mean Corpuscular Hemoglobin 27, Mean Corpuscular Hemoglobin Concent 32, Red Cell Distribution Width 15.5H, Platelet Count 214, Mean Platelet Volume 12.4H, Immature Granulocyte % (Auto) 1, Neutrophils (%) ( Auto) 77H, Lymphocytes (%) (Auto) 14, Monocytes (%) (Auto) 5, Eosinophils (%) (Auto) 3, Basophils (%) (Auto) 0, Neutrophils # (Auto) 14.9H, Lymphocytes # (Auto) 2.7, Monocytes # (Auto) 1.0, Eosinophils # (Auto) 0.6H, Basophils # (Auto) 0.1, Immature Granulocyte # (Auto) 0.1, Neutrophils % (Manual) 76, Lymphocytes % (Manual) 16, Monocytes % (Manual) 4, Eosinophils % (Manual) 4, Basophils % (Manual) 0, Band Neutrophils 0, Anisocytosis SLIGHT Microbiology 03/20/21 MRSA Screen - Final, Complete MRSA not isolated Home Meds Active Dok (Docusate Sodium) 100 Mg Capsule 100 Mg PO BID Acetaminophen 500 Mg Tablet 1,000 Mg PO Q8HR Oxyir Tablet (Oxycodone HCl) 5 Mg Tab 5 Mg PO Q4HR Ibu (Ibuprofen) 600 Mg Tablet 600 Mg PO Q6HR Ferosul (Ferrous Sulfate) 325 Mg Tablet 325 Mg PO DAILY@0700 Reported Macrobid 100 mg Capsule (Nitrofurantoin Monohyd/M-Cryst) 100 Mg Capsule Tab PO Vitamins ( Vit W-Ca,Fe,FA(<1 mg)) 1 Each Tablet 1 Each PO DAILY Discharge Instructions Discharge Diet: No Restrictions Activity as Tolerated: Yes Discharge Physical Examination Allergies: Coded Allergies: No Known Drug Allergies (Unverified , 02/04/21) Discharge Summary Date of Admission Mar 20, 2021 at 06:12 Date of Discharge MEGAN CASEY DO Mar 21, 2021 13:24
--- NOTE | 2021-03-21 13:27 | Discharge Inst-Women's Service ---
Discharge Inst-Women's Serv Depart Medication/Instructions New, Converted or Re-Newed RX: Transmitted to Pharmacy Final Diagnosis previous section acute blood loss anemia Problems Reviewed?: Yes Consults/Follow Up Additional Follow Up: Yes (1 week for incision check 6 week pp exam with Dr. Rob) Activity Activity: Activity as Tolerated Driving Instructions: No Driving for 1 Week NO SMOKING: NO SMOKING Nothing Inside Vagina: No Douching, No [place], No Tampons Diet Discharge Diet: No Restrictions Symptoms to Report to : Bleeding Excessive, Pain Increased, Fever Over 101 Degrees F, Vaginal Bleeding Increase, Cramps in Feet or Legs, Vaginal Discharge Foul For Any Problems or Questions: Contact Your Physician Skin/Wound Care Infection Signs and Symptoms: Increased Redness, Foul Odor of Wound, Increased Drainage, Skin Itchy or Has a Rash, Increased Swelling, Temperature Above 101 F Operative Area Clean and Dry: Keep Incision Clean/Dry Stitches/Palmer/Dermabond: Dermabond Bathing Instructions: MEGAN Aguilar DO Mar 21, 2021 13:27
[2021-03-21 16:30] VITALS: BP 122/74
[2021-03-21 22:23] VITALS: BP 100/57
[2021-03-22] MEDS: ACETAMINOPHEN 500 MG TAB (TYLENOL) PO SCH ×2 (03:27→03:29)
[2021-03-22 03:39] VITALS: BP 95/54
[2021-03-22] MEDS: IBUPROFEN 600 MG (MOTRIN) TAB PO SCH ×2 (03:39→10:30)
[2021-03-22] MEDS ORDERED: FERROUS SULF 325 MG (IRON) TAB PO SCH (07:00)
--- NOTE | 2021-03-22 09:25 | Postpartum Progress Note ---
Note Note Day # 2 s/p RLTCS Subjective: Patient is without complaints. Ambulating, voiding. Tolerating a regular diet without nausea or vomiting. Normal lochia. Pain is well controlled with oral pain medications. Breast feeding. Objective: Physical Exam: General - Alert and oriented, no apparent distress Abdomen - Soft, appropriately tender to palpation, non-distended, fundus firm at umbilicus Extremities - no edema, negative Ken's bilaterally Assessment: 1. post- day # 2, status post RLTCS. Recovering well, hemodynamically stable 2. Acute blood loss anemia Plan: Routine care. Encourage breast feeding. Encourage ambulation. Ferrous sulfate supplementation. Plan for discharge today, 03/22 RTC in 1wk for incision check 6wk PP appt w/Dr. Rob at [facility] Vitals - Labs Vital Signs - I&O Vital Signs Date Time Temp Pulse Resp B/P (MAP) Pulse Ox O2 Delivery O2 Flow Rate FiO2 03/22/21 03:39 36.2 76 18 95/54 (68) 100 Room Air 03/21/21 22:23 36.6 82 18 100/57 (71) 100 Room Air 03/21/21 16:30 36.8 82 18 122/74 (90) 100 Room Air 03/21/21 12:30 36.5 98 18 113/66 (82) 98 Room Air I & O 03/22/21 07:00 Intake Total 1375 ml Output Total 1500 ml Balance -125 ml Labs Microbiology 03/20/21 MRSA Screen - Final, Complete MRSA not isolated 03/20/21 Urine Culture - Preliminary, Resulted Escherichia coli [employer] Mar 22, 2021 09:24
[2021-03-22 10:30] VITALS: BP 119/73
[2021-03-22] MEDS: DOCUSATE SODIUM 100 MG (COLACE) CAP PO SCH (10:30)
== END 2021-03-22 13:20 | disposition home or self-care (01) | DRG 787 ==
LOC: LDRP 06:12
PROVIDERS: ADMIT Obstetrics & Gynecology; ATTEND Obstetrics & Gynecology
PROC: 10D00Z1 Extraction of Products of Conception, Low, Open Approach (ICD-10-PCS; principal; 2021-03-20 07:26)
DX: O34.211 Maternal care for low transverse scar from previous cesarean delivery (principal); D62 Acute posthemorrhagic anemia; O23.43 Unspecified infection of urinary tract in pregnancy, third trimester; O90.81 Anemia of the puerperium; Z3A.39 39 weeks gestation of pregnancy; Z37.0 Single live birth; O99.334 Smoking (tobacco) complicating childbirth; F17.210 Nicotine dependence, cigarettes, uncomplicated; B96.20 Unspecified Escherichia coli [E. coli] as the cause of diseases classified elsewhere
CPT/HCPCS: 36415; 81000; 85007; 85027; 86850; 86900; 86901; 87077; 87081; 87088; 87186; 94664

== ENCOUNTER 2023-02-05 22:42 | Emergency (ER) | payer MEDICAID ==
[~2023-02-05] VITALS: Ht 162.6 cm; Wt 56.7 kg
[~2023-02-05 22:42] MED LIST changes: +ACET-93 PO; -CLIN150C18 PO; +CLIN150C20 PO; +DOCU-239 PO; +FERR325T24 PO; +OXC5T PO
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
[2023-02-05] MEDS ORDERED: TETANUS,DIPTH,PERTUSS P/F (BOOSTRIX) 0.5 ML VIAL IM ONE (23:00)
[2023-02-05] MEDS ORDERED: LIDOCAINE 1% INJ 20 ML VIAL IJ ONE (23:00)
[2023-02-05] MEDS ORDERED: RX-CEPHALEXIN (KEFLEX) 250 MG CAP PPK#4 PO STA (23:38)
[2023-02-05] MEDS ORDERED: CEPH500T PO (23:41)
[2023-02-05 23:55] VITALS: BP 118/82
--- NOTE | 2023-02-06 08:47 | Diagnostic Imaging Report ---
EXAMINATION: Right hand radiograph EXAM DATE: 02/05/2023 11:14 PM COMPARISON: None available. HISTORY: finger pain TECHNIQUE: 3 views FINDINGS: There is no acute fracture, dislocation, or destructive osseous process. The joint spaces are normal. The soft tissues are normal. IMPRESSION: 1. No acute osseous abnormality. 2. Agree with preliminary interpretation. Dictated by: Dictated on workstation # [id number]
== END 2023-02-06 00:04 | disposition home or self-care (01) ==
LOC: EDUNIT# 22:42 → ER 22:44
DX: S61.212A Laceration without foreign body of right middle finger without damage to nail, initial encounter (principal); S61.214A Laceration without foreign body of right ring finger without damage to nail, initial encounter; F15.10 Other stimulant abuse, uncomplicated; F10.10 Alcohol abuse, uncomplicated; F17.210 Nicotine dependence, cigarettes, uncomplicated; Z23 Encounter for immunization; W26.0XXA Contact with knife, initial encounter; W19.XXXA Unspecified fall, initial encounter
CPT/HCPCS: 12041; 73140; 90715